=== PATIENT | female | born 1935 | race Caucasian/White ===

== ENCOUNTER 2016-07-18 11:02 | Observation (INO) | payer OTHER ==
--- NOTE | 2016-07-18 11:42 | PDOC ---
History of Present Illness - General Chief Complaint: Injury Stated Complaint: UNWITNESSED FALL Time Seen by Provider: 07/18/16 11:13 - History of Present Illness Initial Comments: 07/18/16 11:57 Chief complaint: The patient has no complaints, denies pain or injury History of present illness: Patient suffers from dementia, is a resident of a local assisted living facility, was found by the nursing staff on the floor, awake and responsive and without sign of injury, was assisted back to bed, and then transported by ambulance for further evaluation. According to the staff, she has a history of frequent falls. Review of systems: The patient denies headache or head injury, neck pain is secondary injury, chest pain, shortness of breath, abdominal pain, nausea, vomiting, diarrhea, visual or focal neurologic symptoms, unsteadiness of gait, dizziness, lightheadedness, vertigo. Patient's daughter was questioned upon arrival, and notes no recent symptoms or change in mental or physical status. Past medical history: Frequent falls as noted, Alzheimer's dementia, mood disorder, elevated cholesterol, adrenal insufficiency Medications: Namenda, Aricept, Celexa, Wellbutrin, atorvastatin, and vitamins ALLERGIES: None Social history: retirement facility, dementia unit, ambulatory on her own, no tobacco alcohol or nonprescription drugs. Family history: Reviewed with her daughter, noncontributory, including early coronary artery disease, metabolic diseases including diabetes, [employer] disease, and cancer. Physical exam: Alert, verbally responsive, accurate responses, no acute distress , no complaints Afebrile, vital signs normal except for rapid irregular heart rate of 150/m Head atraumatic. There is no evidence of a head injury, no abrasion, laceration , contusion, or hematoma palpable or visible. HEENT normal Neck supple without bruit mass or nodes. There is no point tenderness, no spasm , and full range of motion without pain Lungs clear to P&A CV irregularly irregular 150/m. 2/6 systolic ejection murmur left sternal border. No JVD or edema. Pulses full and symmetric. No bruits Abdomen soft nontender without mass or organomegaly Neurological C2 to 12 intact. No focal sensory or motor deficits. Strength full and symmetric. Gait stable and unimpaired Extremities no CCE. No trauma visible or palpable. Full range of motion shoulder and hips without limitation or pain. No point tenderness or deformity of the spine. Skin clear, no rash, adequate turgor but mucous membranes Impression: New onset rapid atrial fibrillation, possibly responsible for fall. Although no loss of consciousness was described, this is still a possibility. No sign of serious injury, including injury to the head neck or extremities. Plan: Rate control, consider conversion, anticoagulation if arrhythmia persists. Cardiology consult. Admit for telemetry. Past History - Past Medical History Allergies/Adverse Reactions: Allergies Allergy/AdvReac Type Severity Reaction Status Date / Time No Known Allergies Allergy Verified 07/18/16 11:14 Home Medications: Ambulatory Orders Atorvastatin Ca [Lipitor] 40 mg PO DAILY 07/18/16 Bupropion HCl [Wellbutrin Xl -] 150 mg PO DAILY 07/18/16 Cholecalciferol (Vitamin D3) [Vitamin D3] 2,000 unit PO DAILY 07/18/16 Citalopram Hydrobromide [Citalopram HBr] 40 mg PO DAILY 07/18/16 Donepezil HCl 23 mg PO DAILY 07/18/16 Fludrocortisone Acetate [Florinef -] 0.1 mg PO BID 07/18/16 Memantine HCl [Namenda Xr] 28 mg PO DAILY 07/18/16 Digoxin [Lanoxin -] 0.125 mg PO DAILY #30 tablet 07/19/16 Cardiac Disorders: Yes (HYPOTENSION) Dementia: Yes Hypercholesterolemia: Yes Psychiatric Problems: Yes (DEPRESSION) - Psycho/Social/Smoking Cessation Hx Anxiety: No Suicidal Ideation: No Smoking History: Unknown if ever smoked Have you smoked in the past 12 months: No Information on smoking cessation initiated: No Hx Alcohol Use: No Drug/Substance Use Hx: No Substance Use Type: None *Physical Exam - Vital Signs Last Vital Signs Temp Pulse Resp BP Pulse Ox 98.2 F 76 18 104/60 98 07/18/16 11:03 07/18/16 11:03 07/18/16 11:03 07/18/16 11:03 07/18/16 11:03 ED Treatment Course - LABORATORY CBC & Chemistry Diagram: 07/19/16 07:40 07/19/16 07:40 Medical Decision Making - Medical Decision Making 07/18/16 12:11 EKG was performed which shows atrial fibrillation with a rapid ventricular response, 158 bpm, nonspecific ST-T wave changes, probably rate related, though inferior subendocardial ischemia is possible. 07/18/16 12:59 Patient's blood pressure was elevated upon admission, but while lying comfortably in bed, was noted to drop to 89/60. Fluids were administered. Dr. Mancilla, cardiology consult, was contacted by phone. The case was discussed, including the new onset atrial fibrillation and the labile blood pressure with hypotension. She recommended administration of digoxin as well as standard monitoring and support of blood pressure if necessary. Pressure rapidly rebounded to 111/69. 07/18/16 13:14 Patient immediately converted to normal sinus rhythm after the administration of digoxin 0.5 mg IV push. She continues to be asymptomatic. Heart rate now is regular and below 100, and repeat EKG being performed. Repeat EKG shows normal sinus rhythm 81/m. Normal axes and intervals. Nonspecific ST-T wave abnormality persists. No ST elevations. No old EKG for comparison. 07/18/16 14:24 Laboratory work reviewed. No significant abnormalities. Normal troponin. 07/18/16 14:25 *DC/Admit/Observation/Transfer Diagnosis at time of Disposition: Atrial fibrillation Qualifiers: Atrial fibrillation type: paroxysmal Qualified Code(s): I48.0 - Paroxysmal atrial fibrillation - Discharge Dispostion Disposition: HOME Condition at time of disposition: Improved Admit: Yes - Prescriptions
[2016-07-18] MEDS ORDERED: dilTIAZem HCL 50 MG/10 ML - 10 ML VIAL IVPUSH ONE (12:25)
[2016-07-18 12:44] LABS: BASOPHIL 2.2 % (0-2.0); EOSINOPHIL 2.2 % (0-4.5); MCH 29.6 pg (25.7-33.7); MCHC 33.6 g/dl (32.0-36.0); MEAN CELL VOLUME 87.9 fl (80-96); MEAN PLT VOLUME 7.7 fl (7.5-11.1); NEUTROPHILS 69.7 % (42.8-82.8); PLATELET COUNT 226 K/MM3 (134-434); RDW 14.3 % (11.6-15.6); WHITE BLOOD COUNT 6.3 K/mm3 (4.0-10.8)
[2016-07-18] MEDS ORDERED: SODIUM CHLORIDE 250 ML IV STA (12:50)
[2016-07-18] MEDS ORDERED: DIGOXIN 0.5 MG/2 ML AMPUL IVPUSH ONE (12:50)
[2016-07-18] MEDS ORDERED: DIGOXIN 0.5 MG/2 ML AMPUL ONE (12:55)
[2016-07-18 12:57] LABS: INR 0.97 (0.82-1.09); PROTHROMBIN TIME (PATIENT) 10.9 SEC (10.2-13.0)
[2016-07-18 13:00] LABS: CPK(DFH) 67 IU/L (26-140)
[2016-07-18 13:01] LABS: ALBUMIN 3.5 g/dl (3.5-5.0); ALK PHOS 132 U/L (32-92); ANION GAP 8 (8-16); BILIRUBIN,TOTAL 0.3 mg/dl (0.2-1.0); CALCIUM 9.1 mg/dl (8.4-10.2); CO2 26 mmol/L (22-28); GLUCOSE,RANDOM 113 mg/dl (74-106); SGOT/AST 17 U/L (10-42); SGPT/ALT 12 U/L (10-40); TOT PROT 5.9 g/dl (6.4-8.3)
[2016-07-18 14:16] LABS: TROPONIN I (DFP) < 0.03 ng/ml (0.03-0.50)
[2016-07-18 16:35] LABS: URINE APPEARANCE Clear; URINE BILIRUBIN Negative (NEGATIVE); URINE BLOOD Negative (NEGATIVE); URINE GLUCOSE (UA) Negative (NEGATIVE); URINE KETONE Negative (NEGATIVE); URINE LEUK ESTERASE Trace (NEGATIVE); URINE NITRITE Negative (NEGATIVE); URINE PROTEIN Negative (NEGATIVE); URINE UROBILINOGEN 0.2 E.U/dl (0.2-1.0)
[2016-07-18 16:38] LABS: URINE COLOR YELLOW
[2016-07-18 17:37] VITALS: BMI 24.9
--- NOTE | 2016-07-18 17:50 | CONSULT ---
Consult Consult Specialty:: Cardiology Referred by:: Dr Harris Reason for Consultation:: Rapid afib - History of Present Illness Chief Complaint: Fall History of Present Illness: 80 yo female, resident of [facility], with dementia, hyperlipidemia, orthostatic hypotention, past falls, here after a fall w/o reported LOC -> found in rapid afin with initial BP 160s (spontaneously dropped to 80 subsequently) and HR 150s -. treated with digoxin 0.5 mg IV - SR pretty soon thereafter. Patient denies palpitations or CP, or SOB. However, she is not reliable given her dementia - History Source History Provided By: Patient, Medical Record - Past Medical History SUBSTANCE ABUSE CLINICIAN: Yes: Dementia Cardio/Vascular: Yes: Hyperlipdemia, Other (orthostatic hypotension) - Alcohol/Substance Use Hx Alcohol Use: No - Smoking History Smoking history: Unknown if ever smoked Have you smoked in the past 12 months: No - Social History Usual Living Arrangement: Assisted Living Home Medications - Allergies Allergies/Adverse Reactions: Allergies Allergy/AdvReac Type Severity Reaction Status Date / Time No Known Allergies Allergy Verified 07/18/16 11:14 - Home Medications Home Medications: Ambulatory Orders Atorvastatin Ca [Lipitor] 40 mg PO DAILY 07/18/16 Bupropion HCl [Wellbutrin Xl -] 150 mg PO DAILY 07/18/16 Cholecalciferol (Vitamin D3) [Vitamin D3] 2,000 unit PO DAILY 07/18/16 Citalopram Hydrobromide [Citalopram HBr] 40 mg PO DAILY 07/18/16 Donepezil HCl 23 mg PO DAILY 07/18/16 Fludrocortisone Acetate [Florinef -] 0.1 mg PO BID 07/18/16 Memantine HCl [Namenda Xr] 28 mg PO DAILY 07/18/16 Digoxin [Lanoxin -] 0.125 mg PO DAILY #30 tablet 07/19/16 Family Disease History - Family Disease History Family History: Unable to Obtain (due to mental status) Review of Systems Unable to obtain ROS, reason: due to mental status Physical Exam Vital Signs: Vital Signs Temperature 98.2 F 07/18/16 14:59 Pulse Rate 72 07/18/16 16:19 Respiratory Rate 16 07/18/16 16:19 Blood Pressure 125/78 07/18/16 16:19 O2 Sat by Pulse Oximetry (%) 97 07/18/16 16:19 Constitutional: Yes: No Distress Eyes: Yes: Conjunctiva Clear HENT: Yes: Atraumatic Neck: Yes: Supple Cardiovascular: Yes: Regular Rate and Rhythm. No: Murmur Respiratory: Yes: CTA Bilaterally Gastrointestinal: Yes: Normal Bowel Sounds, Soft Edema: No Peripheral Pulses WNL: Yes Neurological: Yes: Alert, Other (forgetful) Imaging - Results Chest X-ray: Report Reviewed, Image Reviewed EKG: Report Reviewed, Image Reviewed (first EKG : afib at 158 , NSST changes. second EKG: SB , mild NSST changes) Assessment/Plan 80 yo female with the above history, here after a fall -. found in rapid afib - . converted to SR after 0.5 IV digoxin No evidence of ACS or CHF Patient has age as major risk factor for afib -. she has a modified CHADS of 3, placing her at high risk for thromboembolic complications. However, I would not anticoagulate her given the orthostasis and previous falls Would not add BB either because of the orthostasis -> if recurrence, will consider standing dig Rec: Tele monitor with serial José Keep lytes nl -> give 40 kdur and check Mg (keep > 2) If stable, may be d/carol in AM, with outpt follow-up Thanks!
[2016-07-18] MEDS ORDERED: POTASSIUM CHLORIDE TABS 20 MEQ TABLET.ER (FP) PO ONE (17:51)
[2016-07-18 17:53] LABS: PH,URINE 6.5 (4.5-8); URINE APPEARANCE Clear; URINE BILIRUBIN Negative (NEGATIVE); URINE BLOOD Trace-intact (NEGATIVE); URINE GLUCOSE (UA) Negative (NEGATIVE); URINE KETONE Negative (NEGATIVE); URINE LEUK ESTERASE Negative (NEGATIVE); URINE NITRITE Negative (NEGATIVE); URINE PROTEIN Negative (NEGATIVE); URINE UROBILINOGEN 0.2 E.U/dl (0.2-1.0)
[2016-07-18 17:57] LABS: URINE COLOR YELLOW
[2016-07-18 18:10] LABS: MAGNESIUM 2.1 mg/dL (1.8-2.4)
[2016-07-18 19:19] LABS: TROPONIN I (DFP) 0.08 ng/ml (0.03-0.50)
[2016-07-18] MEDS ORDERED: ATORVASTATIN CA 40 MG TABLET (FP) PO SCH (22:00)
--- NOTE | 2016-07-18 22:02 | HP ---
CHIEF COMPLAINT: fall PCP: Dr. Monreal in [place] HISTORY OF PRESENT ILLNESS: This is a 80 year old female with a past medical history significant for frequent falls, dementia and orthostatic hypotension due to adrenal insufficiency who was found on the floor at her assisted living facility, [facility]. Upon exam, pt is feeling well, denies any c/o chest pain, SOB, palpitations or dizziness. Pt does not really remember falling but does remember coming here via ambulance. ER course was notable for: (1) ECG with afib with RVR (2) trop negative Recent Travel: none PAST MEDICAL HISTORY: dementia, Alzheimers orthostatic hypotension due to adrenal insufficiency hyperlipidemia frequent falls PAST SURGICAL HISTORY: tonsillectomy as a child Social History Smoking: pt denies Drinking: Pt denies Drugs: pt denies Allergies No Known Allergies Allergy (Verified 07/18/16 11:14) HOME MEDICATIONS: 3 Medication Instructions Recorded Atorvastatin Ca [Lipitor] 40 mg PO DAILY 07/18/16 Bupropion HCl [Wellbutrin Xl -] 150 mg PO DAILY 07/18/16 Cholecalciferol (Vitamin D3) 2,000 unit PO DAILY 07/18/16 [Vitamin D3] Citalopram Hydrobromide 40 mg PO DAILY 07/18/16 [Citalopram HBr] Donepezil HCl 23 mg PO DAILY 07/18/16 Fludrocortisone Acetate [Florinef 0.1 mg PO BID 07/18/16 -] Memantine HCl [Namenda Xr] 28 mg PO DAILY 07/18/16 REVIEW OF SYSTEMS CONSTITUTIONAL: Absent: fever, chills, diaphoresis, generalized weakness, malaise, loss of appetite, weight change HEENT: Absent: rhinorrhea, nasal congestion, throat pain, throat swelling, difficulty swallowing, mouth swelling, ear pain, eye pain, visual changes CARDIOVASCULAR: Absent: chest pain, syncope, palpitations, irregular heart rate, lightheadedness , peripheral edema RESPIRATORY: Absent: cough, shortness of breath, dyspnea with exertion, orthopnea, wheezing, stridor, hemoptysis GASTROINTESTINAL: Absent: abdominal pain, abdominal distension, nausea, vomiting, diarrhea, constipation, melena, hematochezia GENITOURINARY: Absent: dysuria, frequency, urgency, hesitancy, hematuria, flank pain, genital pain MUSCULOSKELETAL: Present: Fall Absent: myalgia, arthralgia, joint swelling, back pain, neck pain SKIN: Absent: rash, itching, pallor HEMATOLOGIC/IMMUNOLOGIC: Absent: easy bleeding, easy bruising, lymphadenopathy, frequent infections ENDOCRINE: Absent: unexplained weight gain, unexplained weight loss, heat intolerance, cold intolerance NEUROLOGIC: Absent: headache, focal weakness or paresthesias, dizziness, unsteady gait, seizure, mental status changes, bladder or bowel incontinence PSYCHIATRIC: Absent: anxiety, depression, suicidal or homicidal ideation, hallucinations. PHYSICAL EXAMINATION Vital Signs - 24 hr 3 07/18/16 07/18/16 07/18/16 18:04 19:58 21:15 Temperature 98.1 F Pulse Rate 79 Respiratory 18 18 18 Rate Blood Pressure 156/60 O2 Sat by Pulse 100 100 100 Oximetry (%) GENERAL: Awake, alert, and oriented to person, hospital (but not name of hospital), month and season but not year, in no acute distress. HEAD: Normal with no signs of trauma. EYES: Pupils equal, round and reactive to light, extraocular movements intact, sclera anicteric, conjunctiva clear. No lid lag. EARS, NOSE, THROAT: Ears normal, nares patent, oropharynx clear without exudates. Moist mucous membranes. NECK: Normal range of motion, supple without lymphadenopathy, JVD, or masses. LUNGS: Breath sounds equal, clear to auscultation bilaterally. No wheezes, and no crackles. No accessory muscle use. HEART: Regular rate and rhythm, normal S1 and S2 without murmur, rub or gallop. ABDOMEN: Soft, nontender, not distended, normoactive bowel sounds, no guarding, no rebound, no masses. No hepatomegaly or splenomegaly. MUSCULOSKELETAL: Normal range of motion at all joints. No bony deformities or tenderness. No CVA tenderness. UPPER EXTREMITIES: 2+ pulses, warm, well-perfused. No cyanosis. No clubbing. No peripheral edema. LOWER EXTREMITIES: 2+ pulses, warm, well-perfused. No calf tenderness. No peripheral edema. NEUROLOGICAL: Cranial nerves II-XII intact. Normal speech. Normal gait. PSYCHIATRIC: Cooperative. Good eye contact. Appropriate mood and affect. SKIN: Warm, dry, normal turgor, no rashes or lesions noted, normal capillary refill. Laboratory Results - last 24 hr 3 07/18/16 07/18/16 07/18/16 12:24 12:24 12:36 WBC RBC Hgb Hct MCV MCHC RDW Plt Count MPV Neutrophils % Lymphocytes % Monocytes % Eosinophils % Basophils % INR 0.97 Sodium 142 Potassium 3.8 Chloride 108 H Carbon Dioxide 26 Anion Gap 8 BUN 19 H Creatinine 1.0 Creat Clearance w eGFR 53.62 Random Glucose 113 H Calcium 9.1 Magnesium 2.1 Total Bilirubin 0.3 AST 17 ALT 12 Alkaline Phosphatase 132 H Creatine Kinase Troponin I Total Protein 5.9 L Albumin 3.5 TSH Urine Color Yellow Urine Appearance Clear Urine pH 7.0 Ur Specific [place] 1.020 Urine Protein Negative Urine Glucose (UA) Negative Urine Ketones Negative Urine Blood Negative Urine Nitrite Negative Urine Bilirubin Negative Urine Urobilinogen 0.2 e.u/dl Ur Leukocyte Esterase Trace 3 07/18/16 07/18/16 07/18/16 12:36 12:36 12:38 WBC 6.3 RBC 4.13 Hgb 12.2 Hct 36.3 MCV 87.9 MCHC 33.6 RDW 14.3 Plt Count 226 MPV 7.7 Neutrophils % 69.7 Lymphocytes % 19.4 Monocytes % 6.5 Eosinophils % 2.2 Basophils % 2.2 H INR Sodium Potassium Chloride Carbon Dioxide Anion Gap BUN Creatinine Creat Clearance w eGFR Random Glucose Calcium Magnesium Total Bilirubin AST ALT Alkaline Phosphatase Creatine Kinase 67 Troponin I < 0.03 L Total Protein Albumin TSH 1.64 Urine Color Urine Appearance Urine pH Ur Specific [place] Urine Protein Urine Glucose (UA) Urine Ketones Urine Blood Urine Nitrite Urine Bilirubin Urine Urobilinogen Ur Leukocyte Esterase 3 07/18/16 07/18/16 16:55 18:30 Creatine Kinase 79 Troponin I 0.08 Urine Color Yellow Urine Appearance Clear Urine pH 6.5 Ur Specific [place] 1.020 Urine Protein Negative Urine Glucose (UA) Negative Urine Ketones Negative Urine Blood Trace-intact Urine Nitrite Negative Urine Bilirubin Negative Urine Urobilinogen 0.2 e.u/dl Ur Leukocyte Esterase Negative ECG 07/18/16 12:01: Afib with RVR, rate 158, QT/QTC 286/463, marked ST abnormality, possible inferior subendocardial injury. ECG 07/18/16 13:21: NSR, rate 81, QTC 473, no acute ST changes, inverted T wave lead 3 ASSESSMENT/PLAN: 80yF with PMH Alzheimer's dementia, frequent falls, orthostatic hypotension due to adrenal insufficiency, hyperlipidemia presented s/p fall, FOF at [facility]. Pt was found to be in Afib with RVR in ED. Admitted for same. Afib with RVR - given digoxin 0.5mg IVP in ED with conversion back to NSR - monitor on tele - if afib recurs, will give digoxin - troponin with slight bump, likely due to demand ischemia, cont to trend. - cardiology consult appreciated - avoid BBlocker or CCB due to h/o hypotension - defer AC due to frequent falls, risk of bleeding. adrenal insufficiency - cont home florinef hyperlipidemia - cont home statin dementia - cont namenda and aricept DVT PPX - defer as expected LOS <48h Dispo: pt admitted for further observation. If no further afib, dc tomorrow. Addendum: 3rd troponin 0.12. climbing but not above 0.5. will start ASA 324mg chew now, repeat in am, if above 0.5, start lovenox full dose Visit type - Emergency Visit Emergency Visit: Yes ED Registration Date: 07/18/16 Care time: The patient presented to the Emergency Department on the above date and was hospitalized for further evaluation of their emergent condition. - New Patient This patient is new to me today: Yes Date on this admission: 07/19/16 - Critical Care Critical Care patient: No
[2016-07-18] MEDS: FLUDROCORTISONE ACETATE 0.1 MG TABLET (FP) PO SCH (22:26)
[2016-07-19 02:10] LABS: TROPONIN I 0.12 ng/ml (0.00-0.05)
[2016-07-19] MEDS ORDERED: ASPIRIN 81 MG CHEWABLE TABLETS PO ONE (02:42)
[2016-07-19 05:49] VITALS: TEMP 98
[2016-07-19 06:33] VITALS: BP 156/62
[2016-07-19 08:03] LABS: MCH 29.9 pg (25.7-33.7); MCHC 33.7 g/dl (32.0-36.0); MEAN CELL VOLUME 88.6 fl (80-96); MEAN PLT VOLUME 7.8 fl (7.5-11.1); NEUTROPHILS 64.7 % (42.8-82.8); PLATELET COUNT 203 K/MM3 (134-434); RDW 13.9 % (11.6-15.6); WHITE BLOOD COUNT 5.5 K/mm3 (4.0-10.8)
[2016-07-19 08:27] LABS: CALCIUM 8.8 mg/dl (8.4-10.2); COCKROFT - GAULT 60.418; CREATININE 0.9 mg/dl (0.6-1.3); MAGNESIUM 1.9 mg/dL (1.8-2.4)
[2016-07-19] MEDS ORDERED: CHOLECALCIFEROL (VITAMIN D3) 1,000 UNIT TABLET (FP) PO SCH (10:00)
[2016-07-19] MEDS ORDERED: PATIENT'S OWN MEDICATION (NON-FORMULARY) (Donepezil Hcl [Donepezil Hcl] 23 MG) PO SCH (10:00)
[2016-07-19] MEDS ORDERED: CITALOPRAM HYDROBROMIDE 20 MG TABLET (FP) PO SCH (10:00)
[2016-07-19] MEDS ORDERED: PATIENT'S OWN MEDICATION (NON-FORMULARY) (Memantine Hcl [Namenda Xr] 28 MG) PO SCH (10:00)
--- NOTE | 2016-07-19 10:00 | PN ---
Physical Exam: SUBJECTIVE: Patient seen and examined OBJECTIVE: Vital Signs Period Temp Pulse Resp BP Sys/Amador Pulse Ox Last 24 Hr 98 F-98.7 F 66-79 18-18 130-156/60-76 94-100 GENERAL: The patient is awake, alert, and fully oriented, in no acute distress. HEAD: Normal with no signs of trauma. EYES: PERRL, extraocular movements intact, sclera anicteric, conjunctiva clear. No ptosis. ENT: Ears normal, nares patent, oropharynx clear without exudates, moist mucous membranes. NECK: Trachea midline, full range of motion, supple. LUNGS: Breath sounds equal, clear to auscultation bilaterally, no wheezes, no crackles, no accessory muscle use. HEART: Regular rate and rhythm, S1, S2 without murmur, rub or gallop. ABDOMEN: Soft, nontender, nondistended, normoactive bowel sounds, no guarding, no rebound, no hepatosplenomegaly, no masses. EXTREMITIES: 2+ pulses, warm, well-perfused, no edema. NEUROLOGICAL: Cranial nerves II through XII grossly intact. Normal speech, gait not observed. PSYCH: Normal mood, normal affect. SKIN: Warm, dry, normal turgor, no rashes or lesions noted Laboratory Results - last 24 hr 07/18/16 07/18/16 07/19/16 16:55 18:30 00:30 WBC RBC Hgb Hct MCV MCHC RDW Plt Count MPV Neutrophils % Lymphocytes % Monocytes % Eosinophils % Basophils % Sodium Potassium Chloride Carbon Dioxide Anion Gap BUN Creatinine Random Glucose Calcium Magnesium Creatine Kinase 79 88 Troponin I 0.08 0.12 H Urine Color Yellow Urine Appearance Clear Urine pH 6.5 Ur Specific [place] 1.020 Urine Protein Negative Urine Glucose (UA) Negative Urine Ketones Negative Urine Blood Trace-intact Urine Nitrite Negative Urine Bilirubin Negative Urine Urobilinogen 0.2 e.u/dl Ur Leukocyte Esterase Negative 07/19/16 07/19/16 07/19/16 07:40 07:40 07:40 WBC 5.5 RBC 3.96 Hgb 11.8 Hct 35.1 MCV 88.6 MCHC 33.7 RDW 13.9 Plt Count 203 MPV 7.8 Neutrophils % 64.7 Lymphocytes % 24.3 D Monocytes % 7.0 Eosinophils % 3.0 Basophils % 1.0 Sodium 137 Potassium 3.9 Chloride 104 Carbon Dioxide 28 Anion Gap 5 L BUN 15 D Creatinine 0.9 Random Glucose 99 Calcium 8.8 Magnesium 1.9 Creatine Kinase 82 Troponin I Urine Color Urine Appearance Urine pH Ur Specific [place] Urine Protein Urine Glucose (UA) Urine Ketones Urine Blood Urine Nitrite Urine Bilirubin Urine Urobilinogen Ur Leukocyte Esterase Active Medications Generic Name Dose Route Start Last Admin Trade Name Javier PRN Reason Stop Dose Admin Atorvastatin Calcium 40 mg 07/18/16 22:00 07/18/16 21:09 Lipitor - PO 40 mg HS ALTAGRACIA Administration Bupropion HCl 150 mg 07/19/16 10:00 Wellbutrin Xl - PO DAILY [facility] Cholecalciferol 2,000 unit 07/19/16 10:00 Vitamin D3 - PO DAILY [facility] Citalopram Hydrobromide 40 mg 07/19/16 10:00 Celexa - PO DAILY [facility] Fludrocortisone Acetate 0.1 mg 07/18/16 22:00 07/18/16 22:26 Florinef - PO 0.1 mg BID ALTAGRACIA Administration Non-Formulary Medication 23 mg 07/19/16 10:00 Donepezil Hcl [Donepezil Hcl] PO DAILY [facility] Non-Formulary Medication 28 mg 07/19/16 10:00 Memantine Hcl [Namenda Xr] PO DAILY [facility] ASSESSMENT/PLAN:
[2016-07-19 10:03] LABS: TROPONIN I (DFP) 0.06 ng/ml (0.03-0.50)
[2016-07-19] MEDS: FLUDROCORTISONE ACETATE 0.1 MG TABLET (FP) PO SCH (10:06)
--- NOTE | 2016-07-19 11:27 | DS ---
Physical Exam: SUBJECTIVE: Patient seen and examined. Denies any CP, SOB, N/V. Does not remember falling or if she hit her head. Denies any head or neck pain/ stiffness. OBJECTIVE: Two episodes of AFib with RVR, rate 133-149, about 30 seconds each. Asymptomatic. Vital Signs Period Temp Pulse Resp BP Sys/Amador Pulse Ox Last 24 Hr 98 F-98.7 F 66-79 18-18 130-156/60-76 94-100 PHYSICAL EXAM GENERAL: The patient is awake, alert and oriented to person and place (thinks it is 2016). In no acute distress. HEAD: Normal with no signs of trauma. EYES: PERRL, extraocular movements intact, sclera anicteric, conjunctiva clear. NECK: Trachea midline, full range of motion. LUNGS: Breath sounds equal, clear to auscultation bilaterally, no wheezes, no crackles, no accessory muscle use. HEART: Regular rate and rhythm, S1, S2 without murmur, rub or gallop. ABDOMEN: Soft, nontender, nondistended, normoactive bowel sounds, no guarding, no rebound, no hepatosplenomegaly, no masses. EXTREMITIES: 2+ pulses, warm, well-perfused, no edema, no calf tenderness. NEUROLOGICAL: Cranial nerves II through XII grossly intact. Normal speech, gait not observed. LABS Laboratory Results - last 24 hr 07/18/16 07/18/16 07/19/16 16:55 18:30 00:30 WBC RBC Hgb Hct MCV MCHC RDW Plt Count MPV Neutrophils % Lymphocytes % Monocytes % Eosinophils % Basophils % Sodium Potassium Chloride Carbon Dioxide Anion Gap BUN Creatinine Random Glucose Calcium Magnesium Creatine Kinase 79 88 Troponin I 0.08 0.12 H Urine Color Yellow Urine Appearance Clear Urine pH 6.5 Ur Specific Morgan 1.020 Urine Protein Negative Urine Glucose (UA) Negative Urine Ketones Negative Urine Blood Trace-intact Urine Nitrite Negative Urine Bilirubin Negative Urine Urobilinogen 0.2 e.u/dl Ur Leukocyte Esterase Negative 07/19/16 07/19/16 07/19/16 07:40 07:40 07:40 WBC 5.5 RBC 3.96 Hgb 11.8 Hct 35.1 MCV 88.6 MCHC 33.7 RDW 13.9 Plt Count 203 MPV 7.8 Neutrophils % 64.7 Lymphocytes % 24.3 D Monocytes % 7.0 Eosinophils % 3.0 Basophils % 1.0 Sodium 137 Potassium 3.9 Chloride 104 Carbon Dioxide 28 Anion Gap 5 L BUN 15 D Creatinine 0.9 Random Glucose 99 Calcium 8.8 Magnesium 1.9 Creatine Kinase 82 Troponin I 0.06 Urine Color Urine Appearance Urine pH Ur Specific Morgan Urine Protein Urine Glucose (UA) Urine Ketones Urine Blood Urine Nitrite Urine Bilirubin Urine Urobilinogen Ur Leukocyte Esterase IMAGING: CT head 07/19 - No evidence of acute intracranial pathology. HOSPITAL COURSE: 80 year-old female with PMH dementia, Alzheimer's, orthostatic hypotension secondary to adrenal insufficiency, hyperlipidemia, and frequent falls who presented to the ED after being found on the floor by staff at her nursing facility. She was conscious at the time. She does not remember falling or if she hit her head. On ED presentation, pt was found to be in AFib with RVR , rate in the 150s. She was given one dose of IV Digoxin and converted to NSR. Today she has had two short paroxysmal episodes of AFib with a rate in the 130- 150s. Date of Admission:07/18/16 Date of Discharge: 07/19/16 PLAN: 1. AFib with RVR - Paroxysmal AFib today, HR 130-150 - Will not start BB or CCB due to history of orthostatic hypotension - Spoke with Dr. Mancilla about paroxysmal AFib. Digoxin 0.125mg PO x 1 given and will start as outpatient per recommendations. - [id number] score 3, however not a candidate for AC given falls. - Troponin max 0.12, likely rate-related. Has trended down to 0.06. 2. Alzheimer's - Mental status at baseline - Continue Namenda, Donepezil 3. Adrenal Insufficiency - Continue Florinef 4. Hyperlipidemia - Continue Lipitor 5. F/E/N Fluids: encourage PO intake Electrolytes: within normal limits Nutrition: tolerating regular diet Dispo: Discharge to assisted living facility. Plan discussed with daughter. Minutes to complete discharge: 35 Discharge Summary Reason For Visit: AFIB Current Active Problems Atrial fibrillation (Acute) Condition: Improved - Instructions Diet, Activity, Other Instructions: You were seen on this admission with atrial fibrillation, an abnormal heart rhythm. The abnormal rhythm has resolved after one dose of medication. Continue all of your prescribed medicines. Follow up with Dr. Mancilla (the heat treating bluer) within 1-2 weeks. Return here for chest pain, shortness of breath, palpitations, or any other concerning symptoms. Referrals: Treasure Mancilla MD [Staff Physician] - 2 Weeks (Cardiology) Disposition: HOME - Home Medications Comprehensive Discharge Medication List: Ambulatory Orders Atorvastatin Ca [Lipitor] 40 mg PO DAILY 07/18/16 Bupropion HCl [Wellbutrin Xl -] 150 mg PO DAILY 07/18/16 Cholecalciferol (Vitamin D3) [Vitamin D3] 2,000 unit PO DAILY 07/18/16 Citalopram Hydrobromide [Citalopram HBr] 40 mg PO DAILY 07/18/16 Donepezil HCl 23 mg PO DAILY 07/18/16 Fludrocortisone Acetate [Florinef -] 0.1 mg PO BID 07/18/16 Memantine HCl [Namenda Xr] 28 mg PO DAILY 07/18/16 This patient is new to me today: Yes Date on this admission: 07/19/16 Emergency Visit: Yes ED Registration Date: 07/18/16 Care time: The patient presented to the Emergency Department on the above date and was hospitalized for further evaluation of their emergent condition. Critical Care patient: No - Discharge Referral Referred to [facility] Med P.C.: No
[2016-07-19] MEDS ORDERED: DIGOXIN 0.125 MG TABLET (FP) PO ONE (12:36)
[2016-07-19 12:51] VITALS: PULSE 74
--- NOTE | 2016-07-19 16:15 | EKG ---
Test Reason : Blood Pressure : / mmHG Vent. Rate : 081 BPM Atrial Rate : 081 BPM P-R Int : 160 ms QRS Dur : 090 ms QT Int : 408 ms P-R-T Axes : 071 023 021 degrees QTc Int : 473 ms POOR DATA QUALITY, INTERPRETATION MAY BE ADVERSELY AFFECTED NORMAL SINUS RHYTHM NONSPECIFIC ST ABNORMALITY WHEN COMPARED WITH ECG OF 18-JUL-2016 12:01, SINUS RHYTHM HAS REPLACED ATRIAL FIBRILLATION VENT. RATE HAS DECREASED BY [address] NO LONGER DEPRESSED IN ANTEROLATERAL LEADS T WAVE INVERSION NO LONGER EVIDENT IN INFERIOR LEADS T WAVE INVERSION NO LONGER EVIDENT IN LATERAL LEADS Confirmed by MD KAY, WILLIS ([id number]) on 07/19/2016 4:15:40 PM Referred By: STAR Confirmed By:WILLIS VILLANUEVA MD
--- NOTE | 2016-07-19 16:15 | EKG ---
Test Reason : Blood Pressure : / mmHG Vent. Rate : 158 BPM Atrial Rate : 156 BPM P-R Int : 000 ms QRS Dur : 084 ms QT Int : 286 ms P-R-T Axes : 000 043 -30 degrees QTc Int : 463 ms ATRIAL FIBRILLATION WITH RAPID VENTRICULAR RESPONSE MARKED ST ABNORMALITY, POSSIBLE INFERIOR SUBENDOCARDIAL INJURY NO PREVIOUS ECGS AVAILABLE Confirmed by MD VILLANUEVA MARJORY ([id number]) on 07/19/2016 4:15:52 PM Referred By: Gage GRAVES Confirmed By:WILLIS VILLANUEVA MD
--- NOTE | 2016-07-22 11:44 | EKG ---
Test Reason : Blood Pressure : / mmHG Vent. Rate : 064 BPM Atrial Rate : 064 BPM P-R Int : 172 ms QRS Dur : 090 ms QT Int : 472 ms P-R-T Axes : 072 030 017 degrees QTc Int : 486 ms NORMAL SINUS RHYTHM NONSPECIFIC ST ABNORMALITY ABNORMAL ECG WHEN COMPARED WITH ECG OF 18-JUL-2016 13:21, T WAVE VARIATION Confirmed by ESTEFANY FERNANDEZ MD ([id number]) on 07/22/2016 11:43:54 AM Referred By: DR RIBEIRO Confirmed By:ESTEFANY FERNANDEZ MD
== END 2016-07-19 13:30 | disposition home or self-care (01) ==
LOC: FER 11:02 → FM/S 16:19
PROVIDERS: ADMIT Internal Medicine; ATTEND Registered Nurse Emergency
PROC: 3E033GC Introduction of Other Therapeutic Substance into Peripheral Vein, Percutaneous Approach (ICD-10-PCS; principal; 2016-07-18)
DX: I48.0 Paroxysmal atrial fibrillation (principal); G30.9 Alzheimer's disease, unspecified; F02.80 Dementia in other diseases classified elsewhere, unspecified severity, without behavioral disturbance, psychotic disturbance, mood disturbance, and anxiety; R29.6 Repeated falls; E78.5 Hyperlipidemia, unspecified; E27.40 Unspecified adrenocortical insufficiency
CPT/HCPCS: 36415; 70450-TC; 80048; 80053; 81003; 82550; 83735; 84443; 84484; 85025; 85610; 87086; 93005; 93010; 99285-25; G0378

== ENCOUNTER 2016-08-19 14:08 | Emergency (ER) | payer OTHER ==
[2016-08-19 14:18] VITALS: TEMP 98.9; BMI 25.0
[2016-08-19 14:57] VITALS: BP 143/73; PULSE 72
--- NOTE | 2016-08-19 14:59 | PDOC ---
History of Present Illness - History of Present Illness Initial Comments: 08/19/16 15:38 Patient is a 80 year old female with significant medical hx of orthostatic hypotension, dementia, frequent falls, and HLD who is presenting to the ED for becoming unstable after walking into a wall this afternoon. The patient is an unreliable historian, stating that everything is fine, and history was provided by PCP, Dr. Vides. Patients PCP reports that she has been lightheaded more often than usual with more frequent falls. PCP suggests her symptoms might be secondary to orthostatic hypotension, since the patient was recently taken off medications for her hypotension. Patient denies any chest pain or shortness of breath. <Patria Mcgregor - Last Filed: 08/19/16 15:38> - General History Source: Patient, EMS, [facility] Records Exam Limitations: Dementia <Jay Waters - Last Filed: 08/19/16 16:11> - General Chief Complaint: Injury Stated Complaint: SENT FOR EVALUATION AFTER WALKING INTO WALL AT RE Time Seen by Provider: 08/19/16 14:10 Past History <Patria Mcgregor - Last Filed: 08/19/16 15:38> - Past Medical History Cardiac Disorders: Yes (HYPOTENSION) Dementia: Yes Hypercholesterolemia: Yes Psychiatric Problems: Yes (DEPRESSION) Other medical history: DEMENTIA - Psycho/Social/Smoking Cessation Hx Anxiety: Yes (DEPRESSION) Suicidal Ideation: No (UNABLE TO ASSESS PT HAS DEMENTIA) Smoking History: Unknown if ever smoked Have you smoked in the past 12 months: No Information on smoking cessation initiated: No Hx Alcohol Use: No Drug/Substance Use Hx: No Substance Use Type: None Hx Substance Use Treatment: No <Jay Waters - Last Filed: 08/19/16 16:11> - Past Medical History Allergies/Adverse Reactions: Allergies Allergy/AdvReac Type Severity Reaction Status Date / Time No Known Allergies Allergy Verified 07/18/16 11:14 Home Medications: Ambulatory Orders Atorvastatin Ca [Lipitor] 40 mg PO DAILY 07/18/16 Bupropion HCl [Wellbutrin Xl -] 150 mg PO DAILY 07/18/16 Cholecalciferol (Vitamin D3) [Vitamin D3] 2,000 unit PO DAILY 07/18/16 Citalopram Hydrobromide [Citalopram HBr] 40 mg PO DAILY 07/18/16 Donepezil HCl 23 mg PO DAILY 07/18/16 Fludrocortisone Acetate [Florinef -] 0.1 mg PO BID 07/18/16 Memantine HCl [Namenda Xr] 28 mg PO DAILY 07/18/16 Digoxin [Lanoxin -] 0.125 mg PO DAILY #30 tablet 07/19/16 Review of Systems - Review of Systems Comments:: 08/19/16 15:39 GENERAL/CONSTITUTIONAL: No fever or chills. No weakness. HEAD, EYES, EARS, NOSE AND THROAT: No change in vision. No ear pain or discharge. No sore throat. CARDIOVASCULAR: Lightheadedness. No chest pain or shortness of breath. RESPIRATORY: No cough, wheezing, or hemoptysis. GASTROINTESTINAL: No nausea, vomiting, diarrhea or constipation. GENITOURINARY: No dysuria, frequency, or change in urination. MUSCULOSKELETAL: No joint or muscle swelling or pain. No neck or back pain. ENDOCRINE: No increased thirst. No abnormal weight change. SKIN: No rash NEUROLOGIC: Gait instability, frequent falls. No headache, vertigo, loss of consciousness, or change in sensation. <Patria Mcgregor - Last Filed: 08/19/16 15:38> *Physical Exam - Vital Signs Last Vital Signs Temp Pulse Resp BP Pulse Ox 98.9 F 72 16 143/73 98 08/19/16 14:09 08/19/16 14:56 08/19/16 14:09 08/19/16 14:56 08/19/16 14:09 - Physical Exam Comments: 08/19/16 15:40 GENERAL: Awake, alert, and fully oriented, in no acute distress HEAD: No signs of trauma EYES: PERRLA, EOMI, sclera anicteric, conjunctiva clear ENT: Auricles normal inspection, hearing grossly normal, nares patent, oropharynx clear without exudates. Moist mucosa NECK: Normal ROM, supple, no lymphadenopathy, JVD, or masses LUNGS: Breath sounds equal, clear to auscultation bilaterally. No wheezes, and no crackles HEART: Regular rate and rhythm, normal S1 and S2, no murmurs, rubs or gallops ABDOMEN: Soft, nontender, normoactive bowel sounds. No guarding, no rebound. No masses EXTREMITIES: Normal range of motion, no edema. No clubbing or cyanosis. No cords, erythema, or tenderness NEUROLOGICAL: AAO x 2 (thinks its 2016). Cranial nerves II through XII grossly intact. Normal speech SKIN: Warm, Dry, normal turgor, no rashes or lesions noted. HEMATOLOGIC/LYMPHATIC: No anemia, easy bleeding, or history of blood clots. ALLERGIC/IMMUNOLOGIC: No hives or skin allergy. <Patria Mcgregor - Last Filed: 08/19/16 15:38> - Vital Signs Last Vital Signs Temp Pulse Resp BP Pulse Ox 98.9 F 89 16 124/64 98 08/19/16 14:09 08/19/16 14:09 08/19/16 14:09 08/19/16 14:09 08/19/16 14:09 <Jay Waters - Last Filed: 08/19/16 16:11> Heart Score/ECG Review #1 ECG reviewed & interpreted by me at: 14:40 08/19/16 15:00 NSR 78, submmSTD II, avf, v3-V5 with dig swoop (unchanged from prior in June), no NUHA, QTC 469 msec <Jay Waters - Last Filed: 08/19/16 16:11> ED Treatment Course - RADIOLOGY Radiograph Interpretation: 08/19/16 15:[address] Impression: Normal noncontrast CT of the brain except for involutional and periventricular white matter changes. Reported By: Joseph Dye MD <Patria Mcgregor - Last Filed: 08/19/16 15:38> - RADIOLOGY Radiology Studies Ordered: Category Date Time Status HEAD CT WITHOUT CONTRAST [CT] Stat CT Scan 08/19/16 14:17 Completed <Jay Waters - Last Filed: 08/19/16 16:11> Medical Decision Making - Medical Decision Making 08/19/16 14:59 A portion of this note was documented by scribe services under my direction. I have reviewed the details of the note, within reason, and agree with the documentation with the following case summary and management plan written by me. Patient treated in the ED. Nursing notes are reviewed and incorporated into the medical decision-making. Vital signs reviewed. Peripheral IV access obtained by the nurse, laboratory studies are drawn and sent, reviewed and interpreted by myself. Vital Signs Temp Pulse Resp BP Pulse Ox 98.9 F 72 16 143/73 98 08/19/16 14:09 08/19/16 14:56 08/19/16 14:09 08/19/16 14:56 08/19/16 14:09 80 year old female with past medical history dementia, orthostatic hypotension, hyperlipidemia, frequent falls presents with walked into a wall. Patient had walked in wall and was soon afterwards unstable. According to the patient's doctor, , the patient has lately been feeling lightheaded and falling frequently which he suspects is secondary to orthostatic hypotension. The patient was recently taken off medications for her orthostatic hypotension which may have led to her feeling more lightheaded. Patient herself is an unreliable historian as she reports that everything is fine. Denies chest pain or shortness of breath. Physical exam demonstrates no acute findings. Head CT ordered which demonstrates no acute hemorrhage. I had spoken to the doctor who requests an EKG and orthostatic vital signs. States that if the patient is orthostatic, will likely reinitiate florinef. 08/19/16 16:05 Patient's ECG unchanged. Head CT unremarkable. Orthostatic positive. Case discussed with DR. Vides. He will restart the orthostatic medication. Pt's daughter contacted and aware of plan. Will discharge back home to living assisted facility, [facility]. I discussed the physical exam findings, ancillary test results and final diagnoses with the patient. I answered all of the patient's questions. The patient was satisfied with the care received and felt comfortable with the discharge plan and treatment plan. The patient will call their primary care physician within 24 hours to arrange follow-up and will return to the Emergency Department with any new, persistant or worsening symptoms. <Jay Waters - Last Filed: 08/19/16 16:11> *DC/Admit/Observation/Transfer - Attestations Scribe Attestion: 08/19/16 15:41 Documentation prepared by Patria Mcgregor, acting as nurses medical assistants phlebotomists for Jay Waters MD. <Patria Mcgregor - Last Filed: 08/19/16 15:38> - Discharge Dispostion Admit: No <Jay Waters - Last Filed: 08/19/16 16:11> Diagnosis at time of Disposition: Orthostatic hypotension Head injury Qualifiers: Encounter type: initial encounter Qualified Code(s): S09.90XA - Unspecified injury of head, initial encounter - Discharge Dispostion Disposition: [facility] Condition at time of disposition: Stable - Patient Instructions Printed Discharge Instructions: DI for Closed Head Injury, DI for Orthostatic Hypotension Additional Instructions: The head CT shows no findings. The orthostatic vital signs were positive. I had discussed the case with the patient's doctor, Dr. Vides. He will readjust your medications.
--- NOTE | 2016-08-20 08:30 | EKG ---
Test Reason : Blood Pressure : / mmHG Vent. Rate : 078 BPM Atrial Rate : 078 BPM P-R Int : 166 ms QRS Dur : 088 ms QT Int : 412 ms P-R-T Axes : 073 051 043 degrees QTc Int : 469 ms NORMAL SINUS RHYTHM NONSPECIFIC ST ABNORMALITY ABNORMAL ECG WHEN COMPARED WITH ECG OF 19-JUL-2016 05:37, NO SIGNIFICANT CHANGE WAS FOUND Confirmed by CUCO GARCES MD ([id number]) on 08/20/2016 8:29:45 AM Referred By: DAE MACHADO Confirmed By:CUCO GARCES MD
== END 2016-08-19 17:10 ==
LOC: FER 14:08
DX: I95.1 Orthostatic hypotension (principal); F03.90 Unspecified dementia, unspecified severity, without behavioral disturbance, psychotic disturbance, mood disturbance, and anxiety; F32.9 Major depressive disorder, single episode, unspecified
CPT/HCPCS: 70450-TC; 93005; 99282-25

== ENCOUNTER 2016-09-08 09:34 | Observation (INO) | payer OTHER ==
[2016-09-08 10:33] LABS: BASOPHIL 1.5 % (0-2.0); EOSINOPHIL 0.2 % (0-4.5); MCH 29.7 pg (25.7-33.7); MCHC 33.8 g/dl (32.0-36.0); MEAN CELL VOLUME 87.9 fl (80-96); MEAN PLT VOLUME 8.1 fl (7.5-11.1); NEUTROPHILS 79.8 % (42.8-82.8); PLATELET COUNT 237 K/MM3 (134-434); RDW 14.5 % (11.6-15.6); WHITE BLOOD COUNT 11.1 K/mm3 (4.0-10.8)
[2016-09-08 10:36] LABS: ALBUMIN 3.6 g/dl (3.5-5.0); ALK PHOS 120 U/L (32-92); ANION GAP 4 (8-16); BILIRUBIN,TOTAL 0.9 mg/dl (0.2-1.0); CALCIUM 8.3 mg/dl (8.4-10.2); CO2 27 mmol/L (22-28); CREATININE 0.8 mg/dl (0.6-1.3); GLUCOSE,RANDOM 119 mg/dl (74-106); PHOSPHOROUS 3.7 mg/dl (2.5-4.6); SGOT/AST 20 U/L (10-42); SGPT/ALT 29 U/L (10-40)
[2016-09-08 10:37] LABS: CPK(DFH) 47 IU/L (26-140)
[2016-09-08 10:38] LABS: ACTIVATED PTT 23.4 SECONDS (24.0-38.9)
[2016-09-08 10:42] LABS: INR 1.05 (0.82-1.09); PROTHROMBIN TIME (PATIENT) 11.7 SEC (10.2-13.0)
[2016-09-08 10:47] LABS: PH,URINE 7.5 (4.5-8); URINE APPEARANCE Clear; URINE BILIRUBIN Negative (NEGATIVE); URINE BLOOD Negative (NEGATIVE); URINE COLOR YELLOW; URINE GLUCOSE (UA) Negative (NEGATIVE); URINE KETONE Negative (NEGATIVE); URINE LEUK ESTERASE Negative (NEGATIVE); URINE NITRITE Negative (NEGATIVE); URINE PROTEIN Negative (NEGATIVE); URINE UROBILINOGEN 0.2 E.U/dl (0.2-1.0)
[2016-09-08 10:54] LABS: TROPONIN I (DFP) < 0.03 ng/ml (0.03-0.50)
--- NOTE | 2016-09-08 11:14 | PDOC ---
Attending Attestation - Resident Resident Name: Chandan Garcias - ED Attending Attestation I have performed the following: I have examined & evaluated the patient, The case was reviewed & discussed with the resident, I agree w/resident's findings & plan, Exceptions are as noted - HPI HPI: 09/08/16 11:58 Agree with the resident's HPI as documented in the electronic medical record. - Physicial Exam PE: 09/08/16 11:58 Agree with the resident's physical examination as documented in the electronic medical record. - Medical Decision Making 09/08/16 11:58 80-year-old female with history of orthostatic hypotension, dementia, episodes of atrial fibrillation who presents to the emergency department following an unwitnessed fall at the nursing homethe patient states that she passed out; the patient complains of left wrist pain and she has a contusion to the center of her 4 head. She has also had multiple falls over the past few months. Differential diagnosis includes but is not limited to: Syncope, symptomatic bradycardia, orthostatic hypotension, Sick-Sinus Syndrome, infection, electrolyte abnormality, dehydration dementia, traumatic brain injury, wrist fracture. Plan: 1. EKGshows normal sinus bradycardia at approximately [address]pm with no acute [address]- segment changes. 2. Labs 3. Urine analysis 3. Chest x-ray 4. CT head 5. Will admit to a monitored setting for serial cardiac markers girders and syncope workup
--- NOTE | 2016-09-08 11:32 | PDOC ---
History of Present Illness - General History Source: Patient, Family (Daughter) Exam Limitations: Dementia - History of Present Illness Initial Comments: 09/08/16 11:27 Patient is a 80F with a PMH of dementia, orthostatic hypotension, hyperlipidemia , a-fib, and frequent falls who presented via EMS after a fall. The patient is a poor historian secondary to memory loss from dementia. The patient states that she passed out around 8am this morning and was woken up by aids. She is unsure of the downtime or any head trauma. She did say she lost consciousness, but was oriented when she woke up. She is unsure about the last time that this has happened. She states that nothing brings it on and nothing makes it better or worse. The daughter states that these syncopal episodes have been occuring weekly. Her PCP has been tweaking her medications to balance her hypertension and orthostatic hypotension. She is not on any blood thinners. ROS+: per HPI ROS-: changes in vision, CP, SOB, headache, numbness, tingling, weakness, fever , chills, nausea vomiting, dysuria Social: Does not smoke, drink, or use recreational drugs Allergies: NKDA <Chandan Garcias - Last Filed: 09/08/16 11:27> <Yulisa Lujan - Last Filed: 09/08/16 12:09> - General Chief Complaint: Injury Stated Complaint: FALL Time Seen by Provider: 09/08/16 09:42 Past History - Past Medical History Cardiac Disorders: Yes (HYPOTENSION, AFIB) Dementia: Yes (SENILE DEGENERATION) Hypercholesterolemia: Yes Psychiatric Problems: Yes (DEPRESSION) - Psycho/Social/Smoking Cessation Hx Anxiety: Yes (DEPRESSION) Suicidal Ideation: No (UNABLE TO ASSESS PT HAS DEMENTIA) Smoking History: Unknown if ever smoked Have you smoked in the past 12 months: No Information on smoking cessation initiated: No Hx Alcohol Use: No Drug/Substance Use Hx: No Substance Use Type: None Hx Substance Use Treatment: No <Chandan Garcias - Last Filed: 09/08/16 11:27> <Yulisa Lujan - Last Filed: 09/08/16 12:09> - Past Medical History Allergies/Adverse Reactions: Allergies Allergy/AdvReac Type Severity Reaction Status Date / Time No Known Allergies Allergy Verified 09/08/16 09:36 Home Medications: Ambulatory Orders Atorvastatin Ca [Lipitor] 40 mg PO DAILY 07/18/16 Bupropion HCl [Wellbutrin Xl -] 150 mg PO DAILY 07/18/16 Cholecalciferol (Vitamin D3) [Vitamin D3] 2,000 unit PO DAILY 07/18/16 Citalopram Hydrobromide [Citalopram HBr] 40 mg PO DAILY 07/18/16 Donepezil HCl 23 mg PO DAILY 07/18/16 Fludrocortisone Acetate [Florinef -] 0.1 mg PO BID 07/18/16 Memantine HCl [Namenda Xr] 28 mg PO DAILY 07/18/16 Aspirin [ASA -] 81 mg PO DAILY 08/19/16 Famotidine [Pepcid] 20 mg PO BID 09/08/16 Hydroxyzine HCl 95 mg PO TID 09/08/16 Midodrine HCl 2.5 mg PO DAILY 09/08/16 Prednisone [Deltasone -] 20 mg PO ASDIR 09/08/16 Review of Systems - Review of Systems Able to Perform ROS?: Yes Is the patient limited Vietnamese proficient: No Constitutional: No: Chills, Fever, Weakness HEENTM: No: Blurred Vision, Recent change in vision Respiratory: No: Shortness of Breath Cardiac (ROS): Yes: Syncope. No: Chest Pain ABD/GI: No: Abdominal Distended, Nausea, Vomiting : No: Dysuria, Discharge Neurological: No: Headache, Numbness, Paresthesia, Tingling, Weakness <Chandan Garcias - Last Filed: 09/08/16 11:27> *Physical Exam - Vital Signs Last Vital Signs Temp Pulse Resp BP Pulse Ox 98.5 F 61 18 197/97 95 09/08/16 09:34 09/08/16 10:46 09/08/16 10:46 09/08/16 10:46 09/08/16 10:46 - Physical Exam General Appearance: Yes: Nourished, Appropriately Dressed. No: Apparent Distress HEENT: positive: Normal Voice. negative: Photophobia, Scleral Icterus (R), Scleral Icterus (L) Respiratory/Chest: positive: Lungs Clear, Normal Breath Sounds. negative: Chest Tender, Respiratory Distress, Accessory Muscle Use Cardiovascular: positive: Regular Rate, S1, S2, Bradycardia Gastrointestinal/Abdominal: positive: Flat, Soft. negative: Tender Extremity: positive: Other (Abrasions present on b/l tibial tuberosities). negative: Swelling Integumentary: positive: Dry, Warm, Petechiae. negative: Swelling Neurologic: positive: heat reader II-XII NML intact, Fully Oriented, Alert, Normal Mood/ Affect, Normal Response, Motor Strength 5/5, Finger to Nose. negative: Facial Droop, Sensory Deficit, Disoriented <Chandan Garcias - Last Filed: 09/08/16 11:27> - Vital Signs Last Vital Signs Temp Pulse Resp BP Pulse Ox 98.5 F 61 18 197/97 95 09/08/16 09:34 09/08/16 10:46 09/08/16 10:46 09/08/16 10:46 09/08/16 10:46 <Yulisa Lujan - Last Filed: 09/08/16 12:09> Heart Score/ECG Review - ECG Impressions Bradycardia: Yes <Chandan Garcias - Last Filed: 09/08/16 11:27> ED Treatment Course - LABORATORY CBC & Chemistry Diagram: 09/08/16 10:10 09/08/16 10:10 - ADDITIONAL ORDERS Additional order review: Laboratory Results 09/08/16 09/08/16 09/08/16 10:30 10:10 10:10 INR PTT (Actin FS) Sodium 135 L Potassium 3.6 Chloride 104 Carbon Dioxide 27 Anion Gap 4 L BUN 17 Creatinine 0.8 Creat Clearance w eGFR > 60 Random Glucose 119 H D Calcium 8.3 L Phosphorus 3.7 Magnesium 2.0 Total Bilirubin 0.9 D AST 20 ALT 29 D Alkaline Phosphatase 120 H Creatine Kinase 47 Troponin I < 0.03 L Total Protein 6.0 L Albumin 3.6 Urine Color Yellow Urine Appearance Clear Urine pH 7.5 Ur Specific [place] 1.015 Urine Protein Negative Urine Glucose (UA) Negative Urine Ketones Negative Urine Blood Negative Urine Nitrite Negative Urine Bilirubin Negative Urine Urobilinogen 0.2 e.u/dl Ur Leukocyte Esterase Negative 09/08/16 10:10 INR 1.05 PTT (Actin FS) 23.4 L Sodium Potassium Chloride Carbon Dioxide Anion Gap BUN Creatinine Creat Clearance w eGFR Random Glucose Calcium Phosphorus Magnesium Total Bilirubin AST ALT Alkaline Phosphatase Creatine Kinase Troponin I Total Protein Albumin Urine Color Urine Appearance Urine pH Ur Specific [place] Urine Protein Urine Glucose (UA) Urine Ketones Urine Blood Urine Nitrite Urine Bilirubin Urine Urobilinogen Ur Leukocyte Esterase 09/08/16 10:10 RBC 3.74 MCV 87.9 MCHC 33.8 RDW 14.5 MPV 8.1 Neutrophils % 79.8 D Lymphocytes % 12.7 D Monocytes % 5.8 Eosinophils % 0.2 D Basophils % 1.5 <Chandan Garcias - Last Filed: 09/08/16 11:27> - LABORATORY CBC & Chemistry Diagram: 09/08/16 10:10 09/08/16 10:10 - ADDITIONAL ORDERS Additional order review: Laboratory Results 09/08/16 09/08/16 09/08/16 10:30 10:10 10:10 INR PTT (Actin FS) Sodium 135 L Potassium 3.6 Chloride 104 Carbon Dioxide 27 Anion Gap 4 L BUN 17 Creatinine 0.8 Creat Clearance w eGFR > 60 Random Glucose 119 H D Calcium 8.3 L Phosphorus 3.7 Magnesium 2.0 Total Bilirubin 0.9 D AST 20 ALT 29 D Alkaline Phosphatase 120 H Creatine Kinase 47 Troponin I < 0.03 L Total Protein 6.0 L Albumin 3.6 Urine Color Yellow Urine Appearance Clear Urine pH 7.5 Ur Specific [place] 1.015 Urine Protein Negative Urine Glucose (UA) Negative Urine Ketones Negative Urine Blood Negative Urine Nitrite Negative Urine Bilirubin Negative Urine Urobilinogen 0.2 e.u/dl Ur Leukocyte Esterase Negative 09/08/16 10:10 INR 1.05 PTT (Actin FS) 23.4 L Sodium Potassium Chloride Carbon Dioxide Anion Gap BUN Creatinine Creat Clearance w eGFR Random Glucose Calcium Phosphorus Magnesium Total Bilirubin AST ALT Alkaline Phosphatase Creatine Kinase Troponin I Total Protein Albumin Urine Color Urine Appearance Urine pH Ur Specific [place] Urine Protein Urine Glucose (UA) Urine Ketones Urine Blood Urine Nitrite Urine Bilirubin Urine Urobilinogen Ur Leukocyte Esterase 09/08/16 10:10 RBC 3.74 MCV 87.9 MCHC 33.8 RDW 14.5 MPV 8.1 Neutrophils % 79.8 D Lymphocytes % 12.7 D Monocytes % 5.8 Eosinophils % 0.2 D Basophils % 1.5 - RADIOLOGY Radiology Studies Ordered: Category Date Time Status HEAD CT WITHOUT CONTRAST [CT] Stat CT Scan 09/08/16 09:57 Completed CHEST PA & LAT [RAD] Stat Radiology 09/08/16 09:57 Completed WRIST-LEFT [RAD] Stat Radiology 09/08/16 09:58 Completed - Medications Given in the ED: ED Medications Discontinued Medications Generic Name Dose Route Start Last Admin Trade Name Javier JACQUES Reason Stop Dose Admin Aspirin 81 mg 09/08/16 11:54 09/08/16 11:58 Ecotrin - PO 09/08/16 11:55 Not Given NOW ONE Bupropion HCl 150 mg 09/08/16 11:53 09/08/16 11:58 Wellbutrin Xl - PO 09/08/16 11:54 Not Given NOW ONE Citalopram Hydrobromide 40 mg 09/08/16 11:52 09/08/16 11:58 Celexa - PO 09/08/16 11:53 Not Given NOW ONE Donepezil HCl 23 mg 09/08/16 11:52 09/08/16 11:58 Aricept - PO 09/08/16 11:53 Not Given NOW ONE Memantine 28 mg 09/08/16 11:52 09/08/16 11:58 Namenda - PO 09/08/16 11:53 Not Given NOW ONE <Yulisa Lujan - Last Filed: 09/08/16 12:09> Medical Decision Making - Medical Decision Making 09/08/16 11:34 Patient is a 80F with a PMH of dementia, orthostatic hypotension, and frequent falls who presents to the ED via EMS for an unwitnessed fall. The patient is hypertensive while laying down (206/82) but has an otherwise normal physical exam. DDx: orthostatic hypotension, stroke, dehydration, medication error, a-fib , aortic stenosis, cardiac rhythm abnormalities. EKG is sinus bradycardia. Head CT shows no acute pathology. Daughter is present in the room and is providing additional history of frequent falls and lack of compliance to MD's advice which leads to frequent falls. She is also updated on patient status/labs/imaging. <Chandan Garcias - Last Filed: 09/08/16 11:27> *DC/Admit/Observation/Transfer <Chandan Garcias - Last Filed: 09/08/16 11:27> - Discharge Dispostion Admit: Yes <Yulisa Lujan - Last Filed: 09/08/16 12:09> Diagnosis at time of Disposition: Syncope, Contusion of head - Discharge Dispostion Condition at time of disposition: Stable
[2016-09-08] MEDS ORDERED: MEMANTINE HCL 10 MG TABLET (FP) PO ONE (11:52)
[2016-09-08] MEDS ORDERED: DONEPEZIL HCL 10 MG TABLET (FP) PO ONE (11:52)
[2016-09-08] MEDS ORDERED: CITALOPRAM HYDROBROMIDE 20 MG TABLET (FP) PO ONE (11:52)
[2016-09-08] MEDS ORDERED: ASPIRIN COATED 81 MG TABLET.EC PO ONE (11:54)
[2016-09-08] MEDS ORDERED: amLODIPine BESYLATE 5 MG TABLET (FP) PO ONE (12:09)
[2016-09-08] MEDS ORDERED: amLODIPine BESYLATE 5 MG TABLET (FP) ONE ×2 (12:10→12:11)
--- NOTE | 2016-09-08 12:26 | HP ---
CHIEF COMPLAINT: questionable syncope PCP: Dr Vides Card: Dr Mancilla HISTORY OF PRESENT ILLNESS: Patient is a 80 y/o female with a past medical history of paroxysmal afib (no AC), orthostatic hypotension (adrenal insufficiency), hyperlipidemia, depression, and senile dementia. Patient resides at the [facility] assisted living. Patient reports she loss consciousness at approximately 0800 on this date. The incident was unwitnessed. She reports being awaken by the nursing aid and was unsure if she struck her head. Daughter reports frequent syncope episodes weekly. Patient was recently on digoxin, however, she developed hives and the medication was discontinued last week. In addition, patient was evaluated by her pcp, Dr Vides and she was placed by on midorine 2.5mg BID ER course was notable for: (1) ct of head no acute intracranial pathology, soft tissue swelling noted (2) ekg sinus bradycardia non specific t wave abnormality (3) troponin x 1 wnl Recent Travel: none PAST MEDICAL HISTORY: see hpi PAST SURGICAL HISTORY: tonsillectomy Social History: resides at [facility] Smoking: none Alcohol: none Drugs: none Family History: non contributory Allergies No Known Allergies Allergy (Verified 09/08/16 09:36) HOME MEDICATIONS: Home Medications Medication Instructions Recorded Atorvastatin Ca [Lipitor] 40 mg PO DAILY 07/18/16 Bupropion HCl [Wellbutrin Xl -] 150 mg PO DAILY 07/18/16 Cholecalciferol (Vitamin D3) 2,000 unit PO DAILY 07/18/16 [Vitamin D3] Citalopram Hydrobromide 40 mg PO DAILY 07/18/16 [Citalopram HBr] Donepezil HCl 23 mg PO DAILY 07/18/16 Fludrocortisone Acetate [Florinef 0.1 mg PO BID 07/18/16 -] Memantine HCl [Namenda Xr] 28 mg PO DAILY 07/18/16 Aspirin [ASA -] 81 mg PO DAILY 08/19/16 Famotidine [Pepcid] 20 mg PO BID 09/08/16 Hydroxyzine HCl 95 mg PO TID 09/08/16 Midodrine HCl 2.5 mg PO DAILY 09/08/16 Prednisone [Deltasone -] 20 mg PO ASDIR 09/08/16 REVIEW OF SYSTEMS CONSTITUTIONAL: Absent: fever, chills, diaphoresis, generalized weakness, malaise, loss of appetite, weight change HEENT: Absent: rhinorrhea, nasal congestion, throat pain, throat swelling, difficulty swallowing, mouth swelling, ear pain, eye pain, visual changes CARDIOVASCULAR: Absent: chest pain, syncope, palpitations, irregular heart rate, lightheadedness , peripheral edema RESPIRATORY: Absent: cough, shortness of breath, dyspnea with exertion, orthopnea, wheezing, stridor, hemoptysis GASTROINTESTINAL: Absent: abdominal pain, abdominal distension, nausea, vomiting, diarrhea, constipation, melena, hematochezia GENITOURINARY: Absent: dysuria, frequency, urgency, hesitancy, hematuria, flank pain, genital pain MUSCULOSKELETAL: Absent: myalgia, arthralgia, joint swelling, back pain, neck pain SKIN: Absent: rash, itching, pallor HEMATOLOGIC/IMMUNOLOGIC: Absent: easy bleeding, easy bruising, lymphadenopathy, frequent infections ENDOCRINE: Absent: unexplained weight gain, unexplained weight loss, heat intolerance, cold intolerance NEUROLOGIC: present: syncope Absent: headache, focal weakness or paresthesias, dizziness, unsteady gait, seizure, bladder or bowel incontinence PSYCHIATRIC: Absent: anxiety, depression, suicidal or homicidal ideation, hallucinations. PHYSICAL EXAMINATION Vital Signs - 24 hr 09/08/16 09/08/16 09:34 10:46 Temperature 98.5 F Pulse Rate 56 L Pulse Rate [ 61 Left Apical] Respiratory 18 18 Rate Blood Pressure 181/82 Blood Pressure 197/97 [Right Arm] O2 Sat by Pulse 96 95 Oximetry (%) Vital Signs - 24 hr 09/08/16 09/08/16 09/08/16 09:34 10:46 13:25 Temperature 98.5 F Pulse Rate 56 L Pulse Rate [ 61 56 L Left Apical] Respiratory 18 18 16 Rate Blood Pressure 181/82 Blood Pressure 197/97 195/83 [Right Arm] O2 Sat by Pulse 96 95 97 Oximetry (%) 09/08/16 09/08/16 13:30 13:35 Temperature Pulse Rate Pulse Rate [ 67 60 Left Apical] Respiratory 18 18 Rate Blood Pressure Blood Pressure 180/73 176/97 [Right Arm] O2 Sat by Pulse 96 97 Oximetry (%) GENERAL: Awake, alert, and fully oriented, in no acute distress. HEAD: abrasion noted to forehead, no bogginess noted EYES: Pupils equal, round and reactive to light, extraocular movements intact, sclera anicteric, conjunctiva clear. No lid lag. EARS, NOSE, THROAT: Ears normal, nares patent, oropharynx clear without exudates. Moist mucous membranes. NECK: Normal range of motion, supple without lymphadenopathy, JVD, or masses. LUNGS: Breath sounds equal, clear to auscultation bilaterally. No wheezes, and no crackles. No accessory muscle use. HEART: Regular rate and rhythm, normal S1 and S2, 2/6 systolic murmur, rub or gallop. ABDOMEN: Soft, nontender, not distended, normoactive bowel sounds, no guarding, no rebound, no masses. No hepatomegaly or splenomegaly. MUSCULOSKELETAL: Normal range of motion at all joints. No bony deformities or tenderness. No CVA tenderness. UPPER EXTREMITIES: 2+ pulses, warm, well-perfused. No cyanosis. No clubbing. No peripheral edema. LOWER EXTREMITIES: 2+ pulses, warm, well-perfused. No calf tenderness. No peripheral edema. NEUROLOGICAL: Cranial nerves II-XII intact. Normal speech. Normal gait. PSYCHIATRIC: Cooperative. Good eye contact. Appropriate mood and affect. SKIN: Warm, dry, normal turgor, uriticaria noted to billateral lower extremities , abrasion noted to bilateral knees. . Laboratory Results - last 24 hr 09/08/16 09/08/16 09/08/16 10:10 10:10 10:10 WBC 11.1 H D RBC 3.74 Hgb 11.1 Hct 32.9 MCV 87.9 MCH 29.7 MCHC 33.8 RDW 14.5 Plt Count 237 MPV 8.1 Neutrophils % 79.8 D Lymphocytes % 12.7 D Monocytes % 5.8 Eosinophils % 0.2 D Basophils % 1.5 INR 1.05 PTT (Actin FS) 23.4 L Sodium 135 L Potassium 3.6 Chloride 104 Carbon Dioxide 27 Anion Gap 4 L BUN 17 Creatinine 0.8 Creat Clearance w eGFR > 60 Random Glucose 119 H D Calcium 8.3 L Phosphorus 3.7 Magnesium 2.0 Total Bilirubin 0.9 D AST 20 ALT 29 D Alkaline Phosphatase 120 H Creatine Kinase Troponin I Total Protein 6.0 L Albumin 3.6 Urine Color Urine Appearance Urine pH Ur Specific [place] Urine Protein Urine Glucose (UA) Urine Ketones Urine Blood Urine Nitrite Urine Bilirubin Urine Urobilinogen Ur Leukocyte Esterase 09/08/16 09/08/16 10:10 10:30 WBC RBC Hgb Hct MCV MCH MCHC RDW Plt Count MPV Neutrophils % Lymphocytes % Monocytes % Eosinophils % Basophils % INR PTT (Actin FS) Sodium Potassium Chloride Carbon Dioxide Anion Gap BUN Creatinine Creat Clearance w eGFR Random Glucose Calcium Phosphorus Magnesium Total Bilirubin AST ALT Alkaline Phosphatase Creatine Kinase 47 Troponin I < 0.03 L Total Protein Albumin Urine Color Yellow Urine Appearance Clear Urine pH 7.5 Ur Specific [place] 1.015 Urine Protein Negative Urine Glucose (UA) Negative Urine Ketones Negative Urine Blood Negative Urine Nitrite Negative Urine Bilirubin Negative Urine Urobilinogen 0.2 e.u/dl Ur Leukocyte Esterase Negative ASSESSMENT/PLAN: 1) card syncopal episode secondary to orthostatic hypotension - case discussed with patient's PCP (Dr Vides) and [employer]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) pt had multiple syncopal episodes in the past due to orthostatic hypotension, last nuclear stress last month as per Dr Mancilla was WNL, ECHO (08/16) LV WNL EF 70%, halter monitor (08/16) 10 beat runs of afib - troponin x 1 wnl, pending 2nd and third - orthostatic vital signs noted, patient is orthostatic - continue midorine home dose 2.5mg bid first dose in AM then 2nd dose at 5pm - fall precautions - appreciate cardiology input hypertension - trial norvasc 5mg po x 1, with strict b/p monitoring 2) neuro dementia - continue aricept depression - continue celexa 3) derm allergic uriticaria - continue prednisone as per home dose taper - caution with benardryl due to syncope f/e/n - low sodium diet - replete lytes prin ppx - no ac history of falls - pepcid dispo: requires obsv telemetry Visit type - Emergency Visit Emergency Visit: Yes ED Registration Date: 09/08/16 Care time: The patient presented to the Emergency Department on the above date and was hospitalized for further evaluation of their emergent condition. - New Patient This patient is new to me today: No - Critical Care Critical Care patient: No
[2016-09-08] MEDS ORDERED: ACETAMINOPHEN 325 MG TABLET (FP) PO PRN (13:59)
[2016-09-08 15:10] VITALS: BMI 24.9
[2016-09-08] MEDS ORDERED: PT OWN MED DRAWER 7, Y5N ONE (17:05)
[2016-09-08 17:11] LABS: CPK(DFH) 57 IU/L (26-140)
[2016-09-08] MEDS: MIDODRINE HCL 2.5 MG TABLET PO SCH ×2 (17:16→17:36)
--- NOTE | 2016-09-08 17:36 | CONSULT ---
Consult Consult Specialty:: Cardiology Referred by:: Stella Banegas Reason for Consultation:: Syncope - History of Present Illness Chief Complaint: syncope History of Present Illness: 80 yo female, with history of Alzheimer's dementia, HLD, orthostatic hypotension , frequent falls/syncope, recent admission here in 07/16 with syncope -. found in rapid afib 0-. SR after IV dig, recently restarted on midodrine because of frequent episodes, here with another episode. Aides found her reportedly. She also had a fall yesterday. Patient not able to contribute to story. She denies any symptoms at this time. PMH Hypercholesteremia Orthostatic hypotension, due to adrenal insufficiency PAF 0> documente din 07/06 -. SR after IV dih Frequent falls Dementia, Alzheimer's Mood disorder Wrist fracture, right05/06/15, from fall Cardiac Studies Echo (08/29/16) technically limited study over all normal to low normal systolic function. ejection fraction 55%. mild mitral regurgitation. prior studies are not available for comparison. Lexiscan Nuclear (09/05/16) No chest pain or ST-T changes with regadenoson stress. However, please note that LA & LL lead reversal was noted. No arrhythmias were noted during stress or rest. Normal rest/stress SPECT myocardial perfusion study. Normal LV wall motion with LVEF of 73%. Of note, a small area of radiotracer activity was noted in the left breast region. Clinical correlation is recommended. Holter (08/16) SR with short afib runs - Past Medical History ORACLE ARCHITECT: Yes: Dementia Cardio/Vascular: Yes: Hyperlipdemia, Other (orthostatic hypotension) - Past Surgical History Past Surgical History: Yes: Tonsillectomy - Alcohol/Substance Use Hx Alcohol Use: No - Smoking History Smoking history: Never smoked Have you smoked in the past 12 months: No - Social History Usual Living Arrangement: Assisted Living Home Medications - Allergies Allergies/Adverse Reactions: Allergies Allergy/AdvReac Type Severity Reaction Status Date / Time No Known Allergies Allergy Verified 09/08/16 09:36 - Home Medications Home Medications: Ambulatory Orders Atorvastatin Ca [Lipitor] 40 mg PO DAILY 07/18/16 Bupropion HCl [Wellbutrin Xl -] 150 mg PO DAILY 07/18/16 Cholecalciferol (Vitamin D3) [Vitamin D3] 2,000 unit PO DAILY 07/18/16 Citalopram Hydrobromide [Citalopram HBr] 40 mg PO DAILY 07/18/16 Donepezil HCl 23 mg PO DAILY 07/18/16 Fludrocortisone Acetate [Florinef -] 0.1 mg PO BID 07/18/16 Memantine HCl [Namenda Xr] 28 mg PO DAILY 07/18/16 Aspirin [ASA -] 81 mg PO DAILY 08/19/16 Famotidine [Pepcid] 20 mg PO BID 09/08/16 Hydroxyzine HCl 95 mg PO TID 09/08/16 Midodrine HCl 2.5 mg PO DAILY 09/08/16 Prednisone [Deltasone -] 20 mg PO ASDIR 09/08/16 Family Disease History - Family Disease History Family History: Denies (premature CAD) Review of Systems Unable to obtain ROS, reason: due to MS Physical Exam Vital Signs: Vital Signs Temperature 97.6 F 09/08/16 14:45 Pulse Rate 77 09/08/16 17:16 Respiratory Rate 18 09/08/16 14:45 Blood Pressure 189/79 09/08/16 17:16 O2 Sat by Pulse Oximetry (%) 97 09/08/16 14:45 Constitutional: Yes: No Distress Eyes: Yes: Conjunctiva Clear HENT: Yes: Other (bruise in center of forehead) Neck: Yes: Supple Cardiovascular: Yes: Regular Rate and Rhythm, Murmur Respiratory: Yes: CTA Bilaterally Gastrointestinal: Yes: Normal Bowel Sounds, Soft. No: Tenderness Edema: No Peripheral Pulses WNL: Yes Neurological: Yes: Alert, Oriented Psychiatric: Yes: Alert, Oriented Imaging - Results Chest X-ray: Report Reviewed, Image Reviewed EKG: Report Reviewed, Image Reviewed (SR with NSST changes) Assessment/Plan 80 yo female with the above history, here with another syncopal episode -. presumed from her orthostasis. BPs however are very high and she is minimally othostatic, going from supine to sitting Given her PAF, however, we have to entertain possible kristopher episodes, especially in setting of conversion from afib to SR Recent holter was unrevealing. Pt's daughter says an event-recorder attempted last year was a "disaster" -> an ILR might be a better alternative No evidence of ACS -. recent nuclear on 08/06/16n was w/o ischemia Recent echo on 08/29/16 showed nl EF and no sign valvular disease Rec: Cont serial José Continue tele Follow BP for now -> avoid treating BP -. may have to if remains high in AM ILR to be considered as outpt Iu future, hydration, compression stockings to be stressed on pt -/. per daughter, she is not compliant with those. She also says that, in spite of what pt says, she gets a prodrome, as they've watched her before the syncopal episodes happen. Thanks! We'll follow! D/w daughter at length
[2016-09-08 17:44] LABS: TROPONIN I (DFP) < 0.03 ng/ml (0.03-0.50)
[2016-09-08] MEDS: FAMOTIDINE 20 MG TABLET PO SCH (21:35)
[2016-09-08] MEDS: FLUDROCORTISONE ACETATE 0.1 MG TABLET (FP) PO SCH (22:05)
[2016-09-09 08:24] LABS: BASOPHIL 0.5 % (0-2.0); EOSINOPHIL 8.1 % (0-4.5); MCH 29.3 pg (25.7-33.7); MCHC 33.6 g/dl (32.0-36.0); MEAN PLT VOLUME 7.9 fl (7.5-11.1); NEUTROPHILS 72.6 % (42.8-82.8); PLATELET COUNT 233 K/MM3 (134-434); RDW 14.5 % (11.6-15.6); WHITE BLOOD COUNT 10.1 K/mm3 (4.0-10.8)
[2016-09-09 08:33] LABS: ANION GAP 7 (8-16); CALCIUM 8.3 mg/dl (8.4-10.2); CO2 30 mmol/L (22-28); CREATININE 1.1 mg/dl (0.6-1.3); GLUCOSE,RANDOM 102 mg/dl (74-106); PHOSPHOROUS 3.6 mg/dl (2.5-4.6)
[2016-09-09 08:35] LABS: CPK(DFH) 39 IU/L (26-140)
--- NOTE | 2016-09-09 09:10 | DS ---
Physical Exam: SUBJECTIVE: Patient seen and examined, patient reports feeling well, denies any headache, chest pain or dizziness OBJECTIVE: Patient is a 80 y/o female with a past medical history of paroxysmal afib (no AC ), orthostatic hypotension (adrenal insufficiency), hyperlipidemia, depression, and senile dementia. Patient resides at the [facility] living. Patient reports she loss consciousness at approximately 0800 on this date. The incident was unwitnessed. She reports being awaken by the nursing aid and was unsure if she struck her head. Daughter reports frequent syncope episodes weekly. Patient was recently on digoxin, however, she developed hives and the medication was discontinued last week. In addition, patient was evaluated by her pcp, Dr Vides and she was placed by on midorine 2.5mg BID ER course was notable for: (1) ct of head no acute intracranial pathology, soft tissue swelling noted (2) ekg sinus bradycardia non specific t wave abnormality (3) troponin x 1 wnl Vital Signs Period Temp Pulse Resp BP Sys/Amador Pulse Ox Last 24 Hr 97.6 F-100.6 F 56-78 16-18 148-195/55-79 94-97 PHYSICAL EXAM GENERAL: Awake, alert, and fully oriented, in no acute distress. HEAD: abrasion noted to forehead, no bogginess noted EYES: Pupils equal, round and reactive to light, extraocular movements intact, sclera anicteric, conjunctiva clear. No lid lag. EARS, NOSE, THROAT: Ears normal, nares patent, oropharynx clear without exudates. Moist mucous membranes. NECK: Normal range of motion, supple without lymphadenopathy, JVD, or masses. LUNGS: Breath sounds equal, clear to auscultation bilaterally. No wheezes, and no crackles. No accessory muscle use. HEART: Regular rate and rhythm, normal S1 and S2, 2/6 systolic murmur, rub or gallop. ABDOMEN: Soft, nontender, not distended, normoactive bowel sounds, no guarding, no rebound, no masses. No hepatomegaly or splenomegaly. MUSCULOSKELETAL: Normal range of motion at all joints. No bony deformities or tenderness. No CVA tenderness. UPPER EXTREMITIES: 2+ pulses, warm, well-perfused. No cyanosis. No clubbing. No peripheral edema. LOWER EXTREMITIES: 2+ pulses, warm, well-perfused. No calf tenderness. No peripheral edema. NEUROLOGICAL: Cranial nerves II-XII intact. Normal speech. Normal gait. PSYCHIATRIC: Cooperative. Good eye contact. Appropriate mood and affect. SKIN: Warm, dry, normal turgor, uriticaria noted to billateral lower extremities , abrasion noted to bilateral knees. LABS Laboratory Results - last 24 hr 09/08/16 09/09/16 09/09/16 16:18 07:29 07:29 WBC 10.1 RBC 4.08 Hgb 11.9 Hct 35.5 MCV 87.0 MCH 29.3 MCHC 33.6 RDW 14.5 Plt Count 233 MPV 7.9 Neutrophils % 72.6 Lymphocytes % 14.7 Monocytes % 4.1 Eosinophils % 8.1 H D Basophils % 0.5 Sodium Potassium Chloride Carbon Dioxide Anion Gap BUN Creatinine Random Glucose Calcium Phosphorus Magnesium Creatine Kinase 57 39 Troponin I < 0.03 L 09/09/16 07:29 WBC RBC Hgb Hct MCV MCH MCHC RDW Plt Count MPV Neutrophils % Lymphocytes % Monocytes % Eosinophils % Basophils % Sodium 137 Potassium 3.4 L Chloride 100 Carbon Dioxide 30 H Anion Gap 7 L BUN 20 H Creatinine 1.1 D Random Glucose 102 Calcium 8.3 L Phosphorus 3.6 Magnesium 2.0 Creatine Kinase Troponin I IMAGING ct of head: no acute intracranial pathology, soft tissue swelling chest xray: no acute pathology wrist xray: no fracture no dislocation noted HOSPITAL COURSE: Patient is a 80 y/o female that was admitted from the emergency department for syncopal episode secondary to orthostatic hypotension. Case discussed with patient's PCP (Dr Vides) and block trader (Dr Mancilla). As per Dr Vides and and Dr Mancilla patient had multiple syncopal episodes in the past due to orthostatic hypotension. Last nuclear stress, 09/05/16, per Dr Mancilla was WNL no ischemia noted. ECHO (08/16) LV WNL EF 70%. Halter monitor (08/16) 10 beat runs of afib. Troponin x 3 WNL. Orthostatic vital signs noted, patient is orthostatic. She was placed on 24 hour cardiac monitoring, no runs of ventricular ectopy was noted on cardiac monitoring. Patient did have one 10 beat run of afib that converted to sinus rhythm. Midorine home dose 2.5mg bid ( first dose in AM then 2nd dose at 5pm) was continued throughout admission. patient was placed on fall precautions. Cardiology, Dr Mancilla was consulted. Patient was noted to be hypertensive upon arrival. Trial norvasc 5mg po x 1 was given in the emergency department. Blood pressure remained well controlled throughout admission. Patient has a past medical history of dementia and aricept was continued. Celexa was continued throughout admission. She was noted to have allergic uriticaria likely secondary to digoxin. Patient was evaluated at [facility] emergency department last week and was started on prednisone, which was continued throughout this admission. Atarax was discontinued due to patient's history of syncopal episodes. PLAN * discharge back to [facility] living * continue all medications as prescribed * must use compression stocks daily * frequent amounts of fluid throughout the day * strict follow up with your block trader, Dr Mancilla within 1 week to plan for ILR * strict follow up PCP, Dr Vides within 1 week * return precautions reviewed, ie chest pain, headache, blurred vision, or shortness of breath. Date of Admission:09/08/16 Date of Discharge: 09/09/16 Minutes to complete discharge: 45 Discharge Summary Reason For Visit: SYNCOPE, HEAD CONTUSION Current Active Problems Head contusion (Acute) Syncope (Acute) Condition: Stable - Instructions Diet, Activity, Other Instructions: resume regular low sodium diet continue all medications as prescribed continue taking midiodrone at 0900 and at 12pm please follow up with your primary care physician within 1 week if chest pain, shortness of breath, or headache develops please return to the emergency department Referrals: Treasure Mancilla MD [Staff Physician] - Ted Vides MD [Primary Care Provider] - 1 Week Disposition: HOME - Home Medications Comprehensive Discharge Medication List: Ambulatory Orders RX: Atorvastatin Ca [Lipitor] 40 mg PO DAILY 07/18/16 RX: Bupropion HCl [Wellbutrin Xl -] 150 mg PO DAILY 07/18/16 RX: Cholecalciferol (Vitamin D3) [Vitamin D3] 2,000 unit PO DAILY 07/18/16 RX: Citalopram Hydrobromide [Citalopram HBr] 40 mg PO DAILY 07/18/16 RX: Donepezil HCl 23 mg PO DAILY 07/18/16 RX: Fludrocortisone Acetate [Florinef -] 0.1 mg PO BID 07/18/16 RX: Memantine HCl [Namenda Xr] 28 mg PO DAILY 07/18/16 Aspirin [ASA -] 81 mg PO DAILY 08/19/16 Famotidine [Pepcid] 20 mg PO BID 09/08/16 Prednisone [Deltasone -] 20 mg PO ASDIR 09/08/16 RX: Hydroxyzine HCl 95 mg PO TID 09/08/16 RX: Midodrine HCl 2.5 mg PO DAILY 09/08/16 This patient is new to me today: No Emergency Visit: Yes ED Registration Date: 09/08/16 Care time: The patient presented to the Emergency Department on the above date and was hospitalized for further evaluation of their emergent condition. Critical Care patient: No - Discharge Referral Referred to [facility] Med [facility].C.: No
[2016-09-09 09:15] LABS: TROPONIN I (DFP) < 0.03 ng/ml (0.03-0.50)
[2016-09-09] MEDS ORDERED: POTASSIUM CHLORIDE TABS 20 MEQ TABLET.ER (FP) PO ONE (10:00)
[2016-09-09] MEDS ORDERED: MIDODRINE HCL 2.5 MG TABLET PO SCH (10:00)
[2016-09-09] MEDS ORDERED: ASPIRIN 81 MG CHEWABLE TABLETS PO SCH (10:00)
[2016-09-09] MEDS ORDERED: CITALOPRAM HYDROBROMIDE 20 MG TABLET (FP) PO SCH (10:00)
[2016-09-09] MEDS ORDERED: CHOLECALCIFEROL (VITAMIN D3) 1,000 UNIT TABLET (FP) PO SCH (10:00)
[2016-09-09] MEDS ORDERED: predniSONE 20 MG TABLET (UD) PO SCH (10:00)
[2016-09-09] MEDS ORDERED: MEMANTINE HCL 10 MG TABLET (FP) PO SCH (10:00)
[2016-09-09] MEDS ORDERED: PATIENT'S OWN MEDICATION (NON-FORMULARY) (Donepezil Hcl [Donepezil Hcl] 23 MG) PO SCH (10:00)
[2016-09-09] MEDS ORDERED: PATIENT'S OWN MEDICATION (NON-FORMULARY) (Memantine Hcl [Namenda Xr] 28 MG) PO SCH (10:00)
[2016-09-09] MEDS ORDERED: PT OWN MED DRAWER 7, Y5N ONE (10:09)
[2016-09-09] MEDS: FAMOTIDINE 20 MG TABLET PO SCH (10:15)
[2016-09-09] MEDS: MIDODRINE HCL 2.5 MG TABLET PO SCH (10:15)
[2016-09-09] MEDS: FLUDROCORTISONE ACETATE 0.1 MG TABLET (FP) PO SCH (10:16)
[2016-09-09 14:20] VITALS: BP 146/62; PULSE 65; TEMP 98.3
--- NOTE | 2016-09-09 17:14 | EKG ---
Test Reason : Blood Pressure : / mmHG Vent. Rate : 058 BPM Atrial Rate : 058 BPM P-R Int : 158 ms QRS Dur : 094 ms QT Int : 496 ms P-R-T Axes : 071 042 023 degrees QTc Int : 486 ms BASELINE ARTIFACTS SINUS BRADYCARDIA NONSPECIFIC ST AND T WAVE ABNORMALITY PROLONGED QT ABNORMAL ECG WHEN COMPARED WITH ECG OF 19-AUG-2016 14:39, DIFFUSE ST ABNORMALITIES AND PROLONGATION OF QT INTERVAL CORELATE CLINICAL Confirmed by VANDA EGAN MD ([id number] on 09/09/2016 5:13:32 PM Referred By: STEPHANIE GROSSMAN Confirmed By:VANDA EGAN MD
[2016-09-09] MEDS ORDERED: DONEPEZIL HCL 10 MG TABLET (FP) PO SCH (22:00)
[2016-09-09] MEDS ORDERED: ATORVASTATIN CA 40 MG TABLET (FP) PO SCH (22:00)
== END 2016-09-09 16:30 ==
LOC: FER 09:34 → FM/S 13:44
PROVIDERS: ADMIT Internal Medicine; ATTEND Nurse Practitioner Family
DX: R55 Syncope and collapse (principal); I48.0 Paroxysmal atrial fibrillation; E78.5 Hyperlipidemia, unspecified; I95.1 Orthostatic hypotension; Z79.82 Long term (current) use of aspirin; L50.0 Allergic urticaria; G30.9 Alzheimer's disease, unspecified; F02.80 Dementia in other diseases classified elsewhere, unspecified severity, without behavioral disturbance, psychotic disturbance, mood disturbance, and anxiety; Z91.81 History of falling; S00.93XA Contusion of unspecified part of head, initial encounter; W18.39XA Other fall on same level, initial encounter; Y93.89 Activity, other specified; Y92.9 Unspecified place or not applicable
CPT/HCPCS: 36415; 70450-TC; 71020-TC; 73110-TC-LT; 80048; 80053; 81003; 82550; 83735; 84100; 84484; 85025; 85610; 85730; 93005; 93880-TC; 97116-GP; 97161-GP; 99285-25; G0378

== ENCOUNTER 2016-09-20 19:19 | Emergency (ER) | payer OTHER ==
--- NOTE | 2016-09-20 19:22 | PDOC ---
History of Present Illness - General History Source: Patient Exam Limitations: No Limitations <JeremiahtimnandiniMaddison - Last Filed: 09/20/16 20:16> - General History Source: Patient Exam Limitations: No Limitations <Thania Medina I - Last Filed: 09/20/16 20:25> - General Chief Complaint: Syncope/Near Syncope Stated Complaint: NEAR SYNCOPE Time Seen by Provider: 09/20/16 19:21 - History of Present Illness Initial Comments: 09/20/16 19:46 Patient is a 80 year old female with a PMH of paroxysmal afib (no AC), orthostatic hypotension (adrenal insufficiency), hyperlipidemia, depression, and senile dementia, frequent falls and syncopal episodes who presents via EMS s /p near syncopal episode. As per EMS the patient had an episode of low BP, but did not fall or syncopize. Patient was seen here 10 days ago s/p syncopal episode. Patient did not sustain any head trauma. She denies any new pain or trauma s/p fall. PAST MEDICAL HISTORY: see HPI. PAST SURGICAL HISTORY: tonsilectoy FAMILY HISTORY: no pertinent history SOCIAL HISTORY: Pt lives at [facility]. Does not smoke, drink, or use recreational drugs MEDICATIONS: reviewed ALLERGIES: As per nursing notes General: No fevers or chills, no weakness, no weight loss HEENT: No change in vision. No sore throat, No ear pain CardioVascular: No chest pain or shortness of breath Respiratory:No cough, or wheezing. Gastrointestinal: no nausea, vomiting, diarrhea or constipation, No rectal bleeding Genitourinary: No dysuria, hematuria, or frequency Musculoskeletal: No joint or muscle pain or swelling Neurologic: No headache, vertigo, dizziness or loss of consciousness Psychiatric: nor depression Skin: No rashes or easy bruising Endocrine: no increased thirst or abnormal weight change Allergic: no skin or latex allergy All other systems reviewed and normal General: Well-nourished well-developed individual, no acute distress HEENT: Throat: Normal, tonsils normal, no erythema or exudate Neck: Supple, no meningeal signs, no lymphadenopathy Eyes:Pupils equal reactive and round, extraocular motion intact Chest: Nontender to palpation Cardiac: S1-S2 normal, regular rate and rhythm, no murmurs rubs or gallops Respiratory: Lungs clear to auscultation bilateral Abdomen: Soft, nondistended, normal bowel sounds, nontender to palpation diffusely Extremities: (+)Bilateral contusions and abrasions that apear to be old. Warm, dry, no cyanosis, clubbing, or edema Skin: No rashes Neuro: Alert and oriented x3, nonfocal exam, grossly intact. Psych: Normal mood and affect (Maddison Meng) 09/20/16 20:23 A portion of this note was documented by scribe services under my direction. I have reviewed the details of the note, within reason, and agree with the documentation. The case summary and management plan written by me. Assessment and plan: This is a 81 -year-old female with frequent syncopal events. Patient also has a history of dementia. Patient was brought in by EMS. Patient is a very poor historian and as per EMS the assisted-living facility where patient lives was also unable to give a clear picture of what exactly happened. Patient said she felt like her blood pressure was low but did not pass out. Patient was here approximately 10 days ago for a syncopal event and has had multiple syncopal events as per her daughter. Patient denied passing out denied any injury but also stated that she was unable to recall what happened. Patient had no injuries that appeared to be new or acute on exam. Patient was otherwise without complaints. Patient had a workup including an EKG which showed normal sinus rhythm no acute ST-T wave changes. Patient's lab work was unremarkable with no acute abnormalities that would have contributed to her questionable near syncope. Patient discharged back to her assisted-living facility. (Thania Medina I) Past History <Maddison Meng - Last Filed: 09/20/16 20:16> - Past Medical History Cardiac Disorders: Yes (HYPOTENSION, AFIB) Dementia: Yes (SENILE DEGENERATION) Hypercholesterolemia: Yes Psychiatric Problems: Yes (DEPRESSION) - Psycho/Social/Smoking Cessation Hx Anxiety: Yes (DEPRESSION) Suicidal Ideation: No (UNABLE TO ASSESS PT HAS DEMENTIA) Smoking History: Never smoked Have you smoked in the past 12 months: No Hx Alcohol Use: No Drug/Substance Use Hx: No Substance Use Type: None Hx Substance Use Treatment: No <Thania Medina I - Last Filed: 09/20/16 20:25> - Past Medical History Allergies/Adverse Reactions: Allergies Allergy/AdvReac Type Severity Reaction Status Date / Time No Known Allergies Allergy Verified 09/08/16 09:36 Home Medications: Ambulatory Orders Atorvastatin Ca [Lipitor] 40 mg PO DAILY 07/18/16 Bupropion HCl [Wellbutrin Xl -] 150 mg PO DAILY 07/18/16 Cholecalciferol (Vitamin D3) [Vitamin D3] 2,000 unit PO DAILY 07/18/16 Citalopram Hydrobromide [Citalopram HBr] 40 mg PO DAILY 07/18/16 Donepezil HCl 23 mg PO DAILY 07/18/16 Fludrocortisone Acetate [Florinef -] 0.1 mg PO BID 07/18/16 Memantine HCl [Namenda Xr] 28 mg PO DAILY 07/18/16 Aspirin [ASA -] 81 mg PO DAILY 08/19/16 Famotidine [Pepcid] 20 mg PO BID 09/08/16 Midodrine HCl 2.5 mg PO DAILY 09/08/16 Prednisone [Deltasone -] 20 mg PO ASDIR 09/08/16 Acetaminophen [Tylenol .Regular Strength -] 650 mg PO Q4H PRN #0 tablet Midodrine HCl [Proamatine -] 2.5 mg PO BID@1000,1700 tablet 09/09/16 - Vital Signs Last Vital Signs Temp Pulse Resp BP Pulse Ox 97.5 F L 91 H 16 140/78 96 09/20/16 19:20 09/20/16 19:20 09/20/16 19:20 09/20/16 19:20 09/20/16 19:20 ED Treatment Course - LABORATORY CBC & Chemistry Diagram: 09/20/16 19:30 09/20/16 19:30 <Maddison Meng - Last Filed: 09/20/16 20:16> - LABORATORY CBC & Chemistry Diagram: 09/20/16 19:30 09/20/16 19:30 <Thania Medina I - Last Filed: 09/20/16 20:25> - ADDITIONAL ORDERS Additional order review: Laboratory Results 09/20/16 09/20/16 19:30 19:30 Sodium 140 Potassium 4.1 D Chloride 106 Carbon Dioxide 24 Anion Gap 10 BUN 30 H D Creatinine 1.1 Creat Clearance w eGFR 47.91 Random Glucose 134 H D Calcium 9.5 Total Bilirubin 0.4 D AST 20 ALT 15 D Alkaline Phosphatase 140 H Creatine Kinase 38 Troponin I < 0.03 L Total Protein 6.1 L Albumin 3.7 09/20/16 19:30 RBC 4.35 MCV 86.8 MCHC 34.7 RDW 15.4 MPV 7.7 Neutrophils % 73.3 Lymphocytes % 19.1 D Monocytes % 4.9 Eosinophils % 0.6 D Basophils % 2.1 H D *DC/Admit/Observation/Transfer <Maddison Meng - Last Filed: 09/20/16 20:16> - Discharge Dispostion Admit: No <Thania Medina I - Last Filed: 09/20/16 20:25> Diagnosis at time of Disposition: Near syncope - Discharge Dispostion Disposition: HOME Condition at time of disposition: Stable - Referrals Referrals: Ted Vides MD [Primary Care Provider] - - Patient Instructions Additional Instructions: Return to the emergency department immediately with ANY new, persistent or worsening symptoms. Continue any medications as previously prescribed by your physician. You should follow up with your primary doctor as soon as possible regarding today's emergency department visit. . Please make sure your doctor reviews the results of your emergency evaluation. Thank you for coming to the Emergency Department today for your care. It was a pleasure to see you today. Please note that your evaluation is INCOMPLETE until you follow-up with your doctor. - Attestations Scribe Attestion: 09/20/16 19:37 Documentation prepared by WALT King, acting as medical orderly for Thania Medina MD. (Maddison Meng)
[2016-09-20 19:25] VITALS: BP 140/78; PULSE 91; TEMP 97.5; BMI 25.0
[2016-09-20 19:51] LABS: BASOPHIL 2.1 % (0-2.0); EOSINOPHIL 0.6 % (0-4.5); MCH 30.1 pg (25.7-33.7); MCHC 34.7 g/dl (32.0-36.0); MEAN CELL VOLUME 86.8 fl (80-96); MEAN PLT VOLUME 7.7 fl (7.5-11.1); NEUTROPHILS 73.3 % (42.8-82.8); PLATELET COUNT 324 K/MM3 (134-434); RDW 15.4 % (11.6-15.6); WHITE BLOOD COUNT 10.1 K/mm3 (4.0-10.8)
[2016-09-20 19:59] LABS: ALBUMIN 3.7 g/dl (3.5-5.0); ALK PHOS 140 U/L (32-92); ANION GAP 10 (8-16); BILIRUBIN,TOTAL 0.4 mg/dl (0.2-1.0); CALCIUM 9.5 mg/dl (8.4-10.2); CO2 24 mmol/L (22-28); CPK(DFH) 38 IU/L (26-140); CREATININE 1.1 mg/dl (0.6-1.3); GLUCOSE,RANDOM 134 mg/dl (74-106); SGOT/AST 20 U/L (10-42); SGPT/ALT 15 U/L (10-40); TOT PROT 6.1 g/dl (6.4-8.3)
[2016-09-20 20:15] LABS: TROPONIN I (DFP) < 0.03 ng/ml (0.03-0.50)
--- NOTE | 2016-09-21 13:00 | EKG ---
Test Reason : Blood Pressure : / mmHG Vent. Rate : 087 BPM Atrial Rate : 087 BPM P-R Int : 148 ms QRS Dur : 090 ms QT Int : 400 ms P-R-T Axes : 063 041 054 degrees QTc Int : 482 ms SINUS RHYTHM PROLONGED QT ABNORMAL ECG WHEN COMPARED WITH ECG OF 08-SEP-2016 09:50, VENT. RATE HAS INCREASED BY 29 BPM NONSPECIFIC T WAVE ABNORMALITY NO LONGER EVIDENT IN INFERIOR LEADS Confirmed by CUCO GARCES MD ([id number]) on 09/21/2016 1:00:11 PM Referred By: VONDA EDOUARD Confirmed By:CUCO GARCES MD
== END 2016-09-20 20:20 | disposition home or self-care (01) ==
LOC: FER 19:19
DX: I95.9 Hypotension, unspecified (principal); R55 Syncope and collapse; Z91.81 History of falling; I48.0 Paroxysmal atrial fibrillation; F03.91 Unspecified dementia, unspecified severity, with behavioral disturbance
CPT/HCPCS: 36415; 80053; 82550; 84484; 85025; 93005; 99283-25

== ENCOUNTER 2017-03-26 17:24 | Emergency (ER) | payer OTHER ==
--- NOTE | 2017-03-26 17:28 | PDOC ---
History of Present Illness <Nicki White - Last Filed: 03/26/17 18:36> <Joseph Bedolla - Last Filed: 03/26/17 18:48> - General Chief Complaint: Syncope/Near Syncope Time Seen by Provider: 03/26/17 17:27 - History of Present Illness Initial Comments: 03/26/17 17:59 The patient is a 81 year old female, with a PMHx of paroxysmal afib (no AC), orthostatic hypotension (adrenal insufficiency), hyperlipidemia, depression, senile dementia, falls, syncopal episodes, who was BIBA from [facility] for syncope. EMS states patient was was seeing her doctor at the assisted living and as they were walking her she syncopized. Daughter states patient did not lose consciousness completely. Patient was seen last August in the ER for same complaint of syncope.As per patients daughter, patient was at the [facility] and she was heading to the doctors office for a lump in her breast when she fainted. Patient has no complaints at the moment. Patient denies hitting her head. She denies recent fevers, chills, headache or dizziness. She denies recent nausea, vomit, diarrhea or constipation. She denies recent dysuria, frequency, urgency or hematuria. She denies recent chest pain or shortness of breath. Allergies: NKA Past surgical history: loop recorder Social history: Nonsmoker. Denies EtOH use and recreational drug use. Primary Care Physician: Ted Vides Grinder Tender: Dr. Mancilla (Nicki White) Past History <Nicki White - Last Filed: 03/26/17 18:36> - Past Medical History Cardiac Disorders: Yes (HYPOTENSION, AFIB) Dementia: Yes (SENILE DEGENERATION) Hypercholesterolemia: Yes Psychiatric Problems: Yes (DEPRESSION) - Suicide/Smoking/Psychosocial Hx Smoking History: Never smoked Have you smoked in the past 12 months: No Hx Alcohol Use: No Drug/Substance Use Hx: No Substance Use Type: None Hx Substance Use Treatment: No <Joseph Bedolla - Last Filed: 03/26/17 18:48> - Past Medical History Allergies/Adverse Reactions: Allergies Allergy/AdvReac Type Severity Reaction Status Date / Time digoxin Allergy Verified 03/26/17 17:25 Home Medications: Ambulatory Orders Atorvastatin Ca [Lipitor] 40 mg PO DAILY 07/18/16 Cholecalciferol (Vitamin D3) [Vitamin D3] 2,000 unit PO DAILY 07/18/16 Citalopram Hydrobromide [Citalopram HBr] 20 mg PO DAILY 07/18/16 Donepezil HCl 23 mg PO DAILY 07/18/16 Fludrocortisone Acetate [Florinef -] 0.1 mg PO BID 07/18/16 Memantine HCl [Namenda Xr] 28 mg PO DAILY 07/18/16 Aspirin [ASA -] 81 mg PO DAILY 08/19/16 Prednisone [Deltasone -] 20 mg PO ASDIR 09/08/16 Acetaminophen [Tylenol .Regular Strength -] 650 mg PO Q4H PRN #0 tablet Midodrine HCl [Proamatine -] 2.5 mg PO BID@1000,1700 tablet 09/09/16 Bupropion HCl [Bupropion HCl Sr] 150 mg PO DAILY 09/21/16 Omeprazole 20 mg PO BID 09/21/16 Review of Systems <Nicki White - Last Filed: 03/26/17 18:36> <Joseph Bedolla - Last Filed: 03/26/17 18:48> - Review of Systems Comments:: 03/26/17 17:59 CONSTITUTIONAL: Absent: fever, no chills, no fatigue EYES: Absent: visual changes ENT: Absent: ear pain, no sore throat CARDIOVASCULAR: Present: syncope Absent: chest pain, no palpitations RESPIRATORY: Absent: cough, no SOB GI: Absent: abdominal pain, no nausea, no vomiting, no constipation, no diarrhea GENITOURINARY: Absent: dysuria, no frequency, no hematuria MUSKULOSKELETAL: Absent: back pain, no arthralgia, no myalgia SKIN: Absent: rash NEURO: Absent: headache (Nicki White) *Physical Exam <Nicki White - Last Filed: 03/26/17 18:36> <Joseph Bedolla - Last Filed: 03/26/17 18:48> - Vital Signs Last Vital Signs Temp Pulse Resp BP Pulse Ox 98.4 F 85 18 156/85 100 03/26/17 17:26 03/26/17 17:26 03/26/17 17:26 03/26/17 17:26 03/26/17 17:26 - Physical Exam Comments: 03/26/17 18:00 GENERAL: Well-appearing, well-nourished. No apparent distress. HEENT: Normocephalic, atraumatic. PERRL, EOM intact. CARDIOVASCULAR: Normal S1, S2. Regular rate and rhythm. PULMONARY: Clear to auscultation bilaterally. ABDOMEN: Soft, non-distended, non-tender. EXTREMITIES: Normal ROM in all four extremities. No gross deformities. SKIN: Warm, dry. No rash NEUROLOGICAL: No focal neurological deficits. (Nicki White) Heart Score/ECG Review <Nicki White - Last Filed: 03/26/17 18:36> <Joseph Bedolla - Last Filed: 03/26/17 18:48> - ECG Intrepretation Comment:: 03/26/17 17:44 Normal sinus rhythm Possible left atrial enlargment Nonspecific ST abnormality Vent rate 83 bpm No stemi No ST-T wave changes (Nicki White) ED Treatment Course - LABORATORY CBC & Chemistry Diagram: 03/26/17 18:20 03/26/17 18:20 <Nicki White - Last Filed: 03/26/17 18:36> - LABORATORY CBC & Chemistry Diagram: 03/26/17 18:20 03/26/17 18:20 <Joseph Bedolla - Last Filed: 03/26/17 18:48> - ADDITIONAL ORDERS Additional order review: Laboratory Results 03/26/17 18:20 Sodium 140 Potassium 3.7 Chloride 107 Carbon Dioxide 30 H D Anion Gap 3 L BUN 22 H D Creatinine 0.9 Creat Clearance w eGFR > 60 Random Glucose 98 D Calcium 8.7 Total Bilirubin 0.4 AST 16 ALT 15 Alkaline Phosphatase 157 H Total Protein 5.9 L Albumin 3.5 03/26/17 18:20 RBC 4.00 MCV 88.2 MCHC 32.2 RDW 14.3 MPV 7.9 Neutrophils % 63.0 Lymphocytes % 25.6 Monocytes % 7.5 Eosinophils % 3.0 Basophils % 0.9 - RADIOLOGY Radiology Studies Ordered: Category Date Time Status CHEST X-RAY PORTABLE* [RAD] Stat Radiology 03/26/17 17:42 Ordered Progress Note <Nicki White - Last Filed: 03/26/17 18:36> <Joseph Bedolla - Last Filed: 03/26/17 18:48> - Progress Note Progress Note: Pt has a hx of syncope, sees Grinder Tender. Awaiting lab work and CXR Pt feels fine now Will need to call Grinder Tender with possible admission. Case to be endorsed to Dr. Gutiérrez, with further disposition. (Joseph Bedolla) *DC/Admit/Observation/Transfer <Nicki White - Last Filed: 03/26/17 18:36> <Joseph Bedolla - Last Filed: 03/26/17 18:48> Diagnosis at time of Disposition: Near syncope Diagnosis at time of Disposition: (Ruled Out): Head injury - Discharge Dispostion Condition at time of disposition: Stable - Referrals Referrals: Ted Vides MD [Primary Care Provider] - - Patient Instructions - Post Discharge Activity - Attestations Scribe Attestion: 03/26/17 18:02 Documentation prepared by Nicki White, acting as medical voucher clerk for Joseph Bedolla MD. (Nicki White)
[2017-03-26 17:40] VITALS: BP 156/85; PULSE 85; TEMP 98.4; BMI 25.0
[2017-03-26 18:34] LABS: BASO % 0.9 % (0-2.0); HEMATOCRIT 35.3 % (32.4-45.2); HEMOGLOBIN 11.4 GM/dl (10.7-15.3); LYMPH % 25.6 % (8-40); MCH 28.4 pg (25.7-33.7); MCHC 32.2 g/dl (32.0-36.0); MEAN CELL VOLUME 88.2 fl (80-96); MEAN PLT VOLUME 7.9 fl (7.5-11.1); MONO % 7.5 % (3.8-10.2); PLATELET COUNT 235 K/MM3 (134-434); RDW 14.3 % (11.6-15.6); WHITE BLOOD COUNT 4.6 K/mm3 (4.0-10.8)
[2017-03-26 18:44] LABS: ALBUMIN 3.5 g/dl (3.5-5.0); ALK PHOS 157 U/L (32-92); ANION GAP 3 (8-16); BILIRUBIN,TOTAL 0.4 mg/dl (0.2-1.0); BLOOD UREA NITROGEN 22 mg/dl (7-18); CALCIUM 8.7 mg/dl (8.4-10.2); CHLORIDE 107 mmol/L (98-107); CO2 30 mmol/L (22-28); CREATININE 0.9 mg/dl (0.6-1.3); GLUCOSE,RANDOM 98 mg/dl (74-106); POTASSIUM 3.7 mmol/L (3.5-5.1); SGOT/AST 16 U/L (10-42); SGPT/ALT 15 U/L (10-40); SODIUM 140 mmol/L (136-145); TOT PROT 5.9 g/dl (6.4-8.3)
--- NOTE | 2017-03-27 15:24 | EKG ---
Test Reason : Blood Pressure : / mmHG Vent. Rate : 083 BPM Atrial Rate : 083 BPM P-R Int : 172 ms QRS Dur : 088 ms QT Int : 408 ms P-R-T Axes : 067 026 044 degrees QTc Int : 479 ms NORMAL SINUS RHYTHM POSSIBLE LEFT ATRIAL ENLARGEMENT NONSPECIFIC ST ABNORMALITY WHEN COMPARED WITH ECG OF 20-SEP-2016 19:33, NO SIGNIFICANT CHANGE WAS FOUND Confirmed by MD KAY, WILLIS ([id number]) on 03/27/2017 3:23:58 PM Referred By: DR BLEDSOE Confirmed By:WILLIS VILLANUEVA MD
== END 2017-03-26 19:23 | disposition home or self-care (01) ==
LOC: FER 17:24
DX: R55 Syncope and collapse (principal); S09.90XA Unspecified injury of head, initial encounter; I48.91 Unspecified atrial fibrillation; I95.9 Hypotension, unspecified; F32.9 Major depressive disorder, single episode, unspecified; E78.00 Pure hypercholesterolemia, unspecified; F03.90 Unspecified dementia, unspecified severity, without behavioral disturbance, psychotic disturbance, mood disturbance, and anxiety; W18.39XA Other fall on same level, initial encounter; Y93.89 Activity, other specified; Y92.129 Unspecified place in nursing home as the place of occurrence of the external cause
CPT/HCPCS: 36415; 71045-TC; 80053; 84484; 85025; 93005; 99282-25

== ENCOUNTER 2017-12-02 13:54 | Emergency (ER) | payer OTHER ==
[2017-12-02 14:22] VITALS: TEMP 98.6; BMI 26.3
--- NOTE | 2017-12-02 14:22 | PDOC ---
History of Present Illness - General History Source: EMS, Friend, Old Records <Cirilo Whyte - Last Filed: 12/02/17 16:31> <Andrew العراقي - Last Filed: 12/02/17 17:30> - General Chief Complaint: Syncope/Near Syncope Stated Complaint: FALL Time Seen by Provider: 12/02/17 13:57 - History of Present Illness Initial Comments: 12/02/17 15:00 The patient is a 82 year old female, with a significant past medical history of paroxysmal afib (no AC), orthostatic hypotension (adrenal insufficiency), hyperlipidemia, depression, senile dementia, falls, syncopal episodes, who presents to the emergency department from [facility] via EMS s/p syncope. As per gentleman she was walking with at the time of the fall, they were walking outdoors when she portrayed a blank stare and syncopized. The gentlemen notes he attempted to catch her, however, they both fell. As per EMS, she hit her head. While in the ER, the patient denies any symptoms. She notes previous episodes of similar symptoms last was March 2017. History was obtained via EMR and acquaintance she was with because she is a poor historian due to her clinical condition. Allergies: Digoxin. Past surgical history: tonsillectomy. loop recorder. Social history: Nonsmoker. Denies EtOH use and recreational drug use. Familial History: Noncontributory, including early coronary artery disease, metabolic diseases including diabetes, TIME CLERK disease, and cancer. Primary Care Physician: Dr. Ted Vides Supervisor Insecticide: Dr. Mancilla (Cirilo Whyte) Past History <Cirilo Whyte - Last Filed: 12/02/17 16:31> - Past Medical History Cardiac Disorders: Yes (HYPOTENSION, AFIB) COPD: No Dementia: Yes (SENILE DEGENERATION) Hypercholesterolemia: Yes Psychiatric Problems: Yes (DEPRESSION) - Suicide/Smoking/Psychosocial Hx Smoking History: Never smoked Have you smoked in the past 12 months: No Hx Alcohol Use: No Drug/Substance Use Hx: No Substance Use Type: None Hx Substance Use Treatment: No <Andrew العراقي - Last Filed: 12/02/17 17:30> - Past Medical History Allergies/Adverse Reactions: Allergies Allergy/AdvReac Type Severity Reaction Status Date / Time digoxin Allergy Verified 12/02/17 14:13 Home Medications: Ambulatory Orders Atorvastatin Ca [Lipitor] 40 mg PO DAILY 07/18/16 Cholecalciferol (Vitamin D3) [Vitamin D3] 2,000 unit PO DAILY 07/18/16 Citalopram Hydrobromide [Citalopram HBr] 20 mg PO DAILY 07/18/16 Fludrocortisone Acetate [Florinef -] 0.1 mg PO BID 07/18/16 Aspirin [ASA -] 81 mg PO DAILY 08/19/16 Bupropion HCl [Bupropion HCl Sr] 150 mg PO DAILY 09/21/16 Midodrine HCl [Proamatine -] 2.5 mg PO BID 03/26/17 Acetaminophen [Tylenol Extra Strength] 500 mg PO PRN PRN 12/02/17 Dronedarone HCl [Multaq] 400 mg PO BID 12/02/17 Tamoxifen Citrate 20 mg PO DAILY 12/02/17 Review of Systems - Review of Systems Able to Perform ROS?: Yes All Other Systems: Reviewed and Negative <Cirilo Whyte - Last Filed: 12/02/17 16:31> <Andrew العراقي - Last Filed: 12/02/17 17:30> - Review of Systems Comments:: 12/02/17 15:00 CONSTITUTIONAL: Absent: fever, no chills, no fatigue EYES: Absent: visual changes ENT: Absent: ear pain, no sore throat CARDIOVASCULAR: Absent: chest pain, no palpitations RESPIRATORY: Absent: cough, no SOB GI: Absent: abdominal pain, no nausea, no vomiting, no constipation, no diarrhea GENITOURINARY: Absent: dysuria, no frequency, no hematuria MUSKULOSKELETAL: Absent: back pain, no arthralgia, no myalgia SKIN: Absent: rash NEURO: Present: Syncope. Absent: headache (Cirilo Whyte) *Physical Exam <Cirilo Whyte - Last Filed: 12/02/17 16:31> <Andrew العراقي - Last Filed: 12/02/17 17:30> - Vital Signs Last Vital Signs Temp Pulse Resp BP Pulse Ox 98.6 F 73 18 143/78 95 12/02/17 13:56 12/02/17 15:16 12/02/17 13:56 12/02/17 15:16 12/02/17 13:56 - Physical Exam Comments: 12/02/17 16:31 GENERAL: Mild confusions due to chronic dementia. Cheerful upon exam. Well developed, well nourished. Awake and alert. No acute distress. HEENT: Optic fundi clear with good central venous dismargins. Clear fundi. No bruises. Normocephalic, atraumatic. PERRLA, EOMI. No conjunctival pallor. Sclera are non- icteric. Moist mucous membranes. Oropharynx is clear. NECK: No tenderness to c-spine. Supple. Full ROM. No JVD. Carotid pulses 2+ and symmetric, without bruits. No thyromegaly. No lymphadenopathy. +CARDIOVASCULAR: Significant orthostatic changes in blood pressure and pulses. No chest tenderness or rib cage deformity. Regular rate and rhythm. No murmurs, rubs, or gallops. Distal pulses are 2+ and symmetric. PULMONARY: No evidence of respiratory distress. Lungs clear to auscultation bilaterally. No wheezing, rales or rhonchi. ABDOMINAL: Soft. Non-tender. Non-distended. No rebound or guarding. No organomegaly. Normoactive bowel sounds. MUSCULOSKELETAL Normal range of motion at all joints. No bony deformities or tenderness. No CVA tenderness. EXTREMITIES: No cyanosis. No clubbing. No edema. No calf tenderness. SKIN: Warm and dry. Normal capillary refill. No rashes. No jaundice. NEUROLOGICAL: Alert, awake, appropriate. Cranial nerves 2-12 intact. No deficits to light touch and temperature in face, upper extremities and lower extremities. No motor deficits in the in face, upper extremities and lower extremities. Normoreflexic in the upper and lower extremities. Normal speech. Toes are down- going bilaterally. PSYCHIATRIC: Cooperative. Good eye contact. Appropriate mood and affect. (Cirilo Whyte) ED Treatment Course - LABORATORY CBC & Chemistry Diagram: 12/02/17 14:56 12/02/17 14:56 <Cirilo Whyte - Last Filed: 12/02/17 16:31> - LABORATORY CBC & Chemistry Diagram: 12/02/17 14:56 12/02/17 14:56 <Andrew العراقي - Last Filed: 12/02/17 17:30> - ADDITIONAL ORDERS Additional order review: Laboratory Results 12/02/17 12/02/17 14:56 14:56 Sodium 139 Potassium 3.4 L Chloride 104 Carbon Dioxide 27 Anion Gap 8 BUN 18 Creatinine 1.3 Creat Clearance w eGFR 39.41 Random Glucose 127 H D Calcium 8.2 L Total Bilirubin 0.3 AST 19 ALT 11 D Alkaline Phosphatase 102 H Creatine Kinase 54 Troponin I < 0.03 Total Protein 6.0 L Albumin 3.4 L 12/02/17 14:56 RBC 3.82 MCV 88.4 MCHC 32.6 RDW 14.1 MPV 7.2 L Neutrophils % 74.3 Lymphocytes % 16.9 Monocytes % 6.2 Eosinophils % 2.1 Basophils % 0.5 - Medications Given in the ED: ED Medications Discontinued Medications Generic Name Dose Route Start Last Admin Trade Name Freq PRN Reason Stop Dose Admin Sodium Chloride 1,000 mls @ 1,000 mls/hr 12/02/17 14:59 12/02/17 15:14 Normal Saline - IV 12/02/17 15:58 1,000 mls/hr ASDIR STA Administration Medical Decision Making <Cirilo Whyte - Last Filed: 12/02/17 16:31> <Andrew العراقي - Last Filed: 12/02/17 17:30> - Medical Decision Making 12/02/17 15:32 Patient with numerous prior syncopal episodes, complete evaluation by oxygen equipment aide Dr. Mancilla, attributed to vascular instability and/or orthostatic hypotension. Physical exam is now normal. There is no evidence of trauma to the head neck trunk or extremities. Baseline dementia but otherwise the patient is awake cheerful and cooperative. EKG is unchanged from prior, normal sinus rhythm. Labs including CBC, chemistries, cardiac enzymes, without significant abnormalities. Examination and the lying and standing position showed significant orthostatic changes with standing. IV fluids were administered. Thereafter the patient was improved, ambulating normally, without lightheadedness dizziness or feeling faint. Discharge with her daughter to follow-up with her oxygen equipment aide, encouraged to drink more fluids and arise slowly when necessary. 12/02/17 15:35 12/02/17 17:29 (Andrew العراقي) *DC/Admit/Observation/Transfer <Cirilo Whyte - Last Filed: 12/02/17 16:31> - Discharge Dispostion Decision to Admit order: No <Andrew العراقي - Last Filed: 12/02/17 17:30> Diagnosis at time of Disposition: Syncope Qualifiers: Syncope type: unspecified Qualified Code(s): R55 - Syncope and collapse - Discharge Dispostion Disposition: HOME Condition at time of disposition: Improved - Patient Instructions Printed Discharge Instructions: DI for Syncope in Adults (Fainting), DI for Orthostatic Hypotension Additional Instructions: Increase fluids and salt. Medication as directed. See oxygen equipment aide for follow- up. - Attestations Scribe Attestion: 12/02/17 15:00 Documentation prepared by Cirilo Whyte, acting as medical facilities section director for Andrew Clark MD. (Cirilo Whyte)
[2017-12-02] MEDS ORDERED: SODIUM CHLORIDE 1,000 ML IV STA (14:59)
[2017-12-02 15:02] LABS: BASO % 0.5 % (0-2.0); EOS % 2.1 % (0-4.5); HEMATOCRIT 33.7 % (32.4-45.2); LYMPH % 16.9 % (8-40); MCH 28.8 pg (25.7-33.7); MCHC 32.6 g/dl (32.0-36.0); MEAN CELL VOLUME 88.4 fl (80-96); MEAN PLT VOLUME 7.2 fl (7.5-11.1); MONO % 6.2 % (3.8-10.2); NEUT % 74.3 % (42.8-82.8); PLATELET COUNT 247 K/MM3 (134-434); RBC 3.82 M/mm3 (3.60-5.2); RDW 14.1 % (11.6-15.6); WHITE BLOOD COUNT 5.1 K/mm3 (4.0-10.8)
[2017-12-02 15:11] LABS: ALBUMIN 3.4 g/dl (3.5-5.0); ALK PHOS 102 U/L (32-92); ANION GAP 8 MMOL/L (8-16); BILIRUBIN,TOTAL 0.3 mg/dl (0.2-1.0); BLOOD UREA NITROGEN 18 mg/dl (7-18); CALCIUM 8.2 mg/dl (8.4-10.2); CHLORIDE 104 mmol/L (98-107); CO2 27 mmol/L (22-28); CREATININE 1.3 mg/dl (0.6-1.3); GLUCOSE,RANDOM 127 mg/dl (74-106); POTASSIUM 3.4 mmol/L (3.5-5.1); SGOT/AST 19 U/L (10-42); SGPT/ALT 11 U/L (10-40); SODIUM 139 mmol/L (136-145)
[2017-12-02 15:16] VITALS: BP 143/78; PULSE 73
--- NOTE | 2017-12-07 11:10 | EKG ---
Test Reason : Blood Pressure : / mmHG Vent. Rate : 076 BPM Atrial Rate : 076 BPM P-R Int : 146 ms QRS Dur : 096 ms QT Int : 458 ms P-R-T Axes : 062 046 044 degrees QTc Int : 515 ms NORMAL SINUS RHYTHM NONSPECIFIC ST ABNORMALITY PROLONGED QT ABNORMAL ECG WHEN COMPARED WITH ECG OF 26-MAR-2017 17:38, NO SIGNIFICANT CHANGE WAS FOUND Confirmed by ESTEFANY FERNANDEZ MD ([id number]) on 12/07/2017 11:09:59 AM Referred By: OMAR GRAVES Confirmed By:ESTEFANY FERNANDEZ MD
== END 2017-12-02 16:31 | disposition home or self-care (01) ==
LOC: FER 13:54
PROC: 3E0337Z Introduction of Electrolytic and Water Balance Substance into Peripheral Vein, Percutaneous Approach (ICD-10-PCS; principal; 2017-12-02)
DX: R55 Syncope and collapse (principal); I48.91 Unspecified atrial fibrillation; I95.1 Orthostatic hypotension; E78.5 Hyperlipidemia, unspecified; F32.9 Major depressive disorder, single episode, unspecified; F03.90 Unspecified dementia, unspecified severity, without behavioral disturbance, psychotic disturbance, mood disturbance, and anxiety
CPT/HCPCS: 36415; 80053; 82550; 84484; 85025; 93005; 96360; 99283-25; J7030

== ENCOUNTER 2018-01-23 15:53 | Emergency (ER) | payer OTHER ==
[2018-01-23 16:02] VITALS: BMI 26.6
[2018-01-23] MEDS ORDERED: SODIUM CHLORIDE 1,000 ML IV STA (16:22)
--- NOTE | 2018-01-23 16:27 | PDOC ---
Attending Attestation - Resident Resident Name: Jos Hancock - ED Attending Attestation I have performed the following: I have examined & evaluated the patient, The case was reviewed & discussed with the resident, I agree w/resident's findings & plan, Exceptions are as noted - HPI HPI: 01/23/18 16:27 82yo F hx pAF (not on AC), orthostatic hypotension c/b frequent syncopal episodes, HL, depression, dementia presents to the emergency department from [facility] for 3 syncopal episodes. Pt's daughter at the bedside provides the history as the pt states she is asymptomatic and does not know why she is here. Per her daughter, the patient does not drink enough water and often gets dehydrated. She states the pt from time to time has syncopal episodes when standing up from a lying or seated position. She states that over the last 3 days, she has had 3 episodes where she gets lightheaded, nauseous and then collapses into the staff's arms. Daughter reports the patient has not had any falls over the last 3 days because the staff have caught her all 3 times. Unclear LOC as pt does not remember these episodes. No postictal period. Staff at [facility] called her daughter and informed her prompting them to bring her to the ED. History is limited due to pt's clinical condition. - Physicial Exam PE: 01/23/18 17:50 GENERAL: Awake, alert, oriented to name, in no acute distress HEAD: No signs of trauma EYES: PERRLA, EOMI, sclera anicteric, conjunctiva clear ENT: Nares patent, oropharynx clear without exudates. Moist mucosa NECK: Normal ROM, supple, no lymphadenopathy, JVD, or masses LUNGS: Breath sounds equal, clear to auscultation bilaterally. No wheezes, and no crackles HEART: irregularly irregular, normal S1 and S2, no murmurs, rubs or gallops ABDOMEN: Soft, nontender, normoactive bowel sounds. No guarding, no rebound. No masses EXTREMITIES: Normal range of motion, no edema. No clubbing or cyanosis. No cords, erythema, or tenderness NEUROLOGICAL: Normal speech, cranial nerves intact, negative pronator drift, 5/ 5 strength in all 4 extremities, normal sensation to light touch in all 4 extremities, normal cerebellar exam, normal tone SKIN: Warm, Dry, normal turgor, no rashes or lesions noted. - Medical Decision Making 01/23/18 17:55 82yo F hx orthostatic hypotension c/b syncope presents to the ED with 2 episodes of LOC when standing up from a seated position over the last 3 days. No falls, no injuries. Orthostatics markedly positive on arrival. Lying BP 153/ 78 and HR 73 -> standing 103/69 and 94. Plan to check labs, EKG, hydrate pt and reassess vitals. 01/23/18 18:59 Labs thus far wnl Rpt orthostatics after 1L: supine BP 177/80, HR 71 -> standing BP 122/78, HR 86 Will given another liter of fluids and reassess CT reads pending, CXR pending UA so far with 2+ LE, micro pending Case signed out to oncoming attending for further mgmt/dispo <Timbo Deealonzo - Last Filed: 01/23/18 18:37> - Medical Decision Making EXAM: CT Cervical spine wo: IMAGES: 246 EXAM DATE AND TIME: 2018-01-23 16:25:52 REASON FOR EXAM: Neck pain. IMPRESSION: Chronic intervertebral osteochondrosis is noted at the C4-5, C5-6 and C6-7 levels, as described above. Small posterior disc osteophyte complexes are noted at C5-6 and C6-7. The study is otherwise unremarkable. No fracture. The spinal canal and neural foramina are patent at all levels without evidence of spinal cord compression or nerve root compromise. One or more of the following dose reduction techniques were used: automated exposure control, adjustment of the mA and/or kV according to patient size, use of iterative reconstructive technique. THIS DOCUMENT HAS BEEN ELECTRONICALLY SIGNED Stephan Nicole MD. 01/23/2018 18:01 EST EXAM: CT Head wo IMAGES: 80 EXAM DATE AND TIME: 2018-01-23 16:29:34 HISTORY: 82 year old woman: Head trauma following a fall. IMPRESSION: Multiple, scattered, deep cerebral white matter chronic microvascular ischemic changes. Moderate age related involutional changes. The study is otherwise unremarkable. No calvarial, facial or skull base fractures imaged on the current exam. No intracranial hemorrhages or brain parenchymal contusion injuries. THIS DOCUMENT HAS BEEN ELECTRONICALLY SIGNED Stephan Nicole MD. 01/23/2018 17:50 EST <Ebony Reyez - Last Filed: 01/23/18 18:50>
--- NOTE | 2018-01-23 16:39 | PDOC ---
History of Present Illness - General Chief Complaint: Syncope/Near Syncope Stated Complaint: SYNCOPE, VOMITING Time Seen by Provider: 01/23/18 16:07 - History of Present Illness Initial Comments: 01/23/18 16:39 The patient is a 82 year old female, with a significant past medical history of paroxysmal afib (no AC), orthostatic hypotension (adrenal insufficiency), hyperlipidemia, depression, senile dementia, falls, syncopal episodes, who presents to the emergency department from [facility] via EMS s/p syncope for the past 2 days and post-prandial vomiting. According to family, patient is often very dehydrated because of poor fluid intake. She usually looses consciousness whenever she gets up too fast and was diagnosed with orthostatic hypotension. Patient also vomited after eating twice. Those symptoms are not new and presented to the ED many times with them. Patient never hit her head or the floor, always collapsed in the arms of a tube depatcher. Past History - Past Medical History Allergies/Adverse Reactions: Allergies Allergy/AdvReac Type Severity Reaction Status Date / Time digoxin Allergy Verified 01/23/18 15:54 Home Medications: Ambulatory Orders Atorvastatin Ca [Lipitor] 40 mg PO DAILY 07/18/16 Cholecalciferol (Vitamin D3) [Vitamin D3] 2,000 unit PO DAILY 07/18/16 Citalopram Hydrobromide [Citalopram HBr] 20 mg PO DAILY 07/18/16 Fludrocortisone Acetate [Florinef -] 0.1 mg PO BID 07/18/16 Aspirin [ASA -] 81 mg PO DAILY 08/19/16 Bupropion HCl [Bupropion HCl Sr] 150 mg PO DAILY 09/21/16 Midodrine HCl [Proamatine -] 2.5 mg PO BID 03/26/17 Acetaminophen [Tylenol Extra Strength] 500 mg PO PRN PRN 12/02/17 Dronedarone HCl [Multaq] 400 mg PO BID 12/02/17 Tamoxifen Citrate 20 mg PO DAILY 12/02/17 Sulfamethoxazole/Trimethoprim [Bactrim Ds Tablet] 1 each PO BID #6 tablet Cancer: Yes (left breast) Cardiac Disorders: Yes (HYPOTENSION, AFIB) COPD: No Dementia: Yes (SENILE DEGENERATION) Hypercholesterolemia: Yes Psychiatric Problems: Yes (DEPRESSION) Other medical history: ORTHOSTATIC HYPOTENSION, SYNCOPE/FAINTING - Suicide/Smoking/Psychosocial Hx Smoking History: Never smoked Have you smoked in the past 12 months: No Information on smoking cessation initiated: No Hx Alcohol Use: No Drug/Substance Use Hx: No Substance Use Type: None Hx Substance Use Treatment: No Review of Systems - Review of Systems Able to Perform ROS?: Yes Is the patient limited French proficient: No Constitutional: No: Symptoms Reported HEENTM: No: Symptoms Reported Respiratory: No: Symptoms reported Cardiac (ROS): No: Symptoms Reported ABD/GI: No: Symptoms Reported : No: Symptoms Reported Musculoskeletal: No: Symptoms Reported Integumentary: No: Symptoms Reported Neurological: No: Symptoms reported All Other Systems: Reviewed and Negative *Physical Exam - Vital Signs Last Vital Signs Temp Pulse Resp BP Pulse Ox 97.7 F 94 H 18 103/69 99 01/23/18 15:53 01/23/18 16:05 01/23/18 16:05 01/23/18 16:05 01/23/18 16:05 - Physical Exam General Appearance: Yes: Nourished, Appropriately Dressed. No: Apparent Distress HEENT: positive: EOMI, GURPREET, Normal ENT Inspection Respiratory/Chest: positive: Lungs Clear, Normal Breath Sounds. negative: Chest Tender, Respiratory Distress Vascular Pulses: Dorsalis-Pedis (R): 1+, Doralis-Pedis (L): 1+ Gastrointestinal/Abdominal: positive: Normal Bowel Sounds, Flat, Soft. negative : Tender Musculoskeletal: positive: Normal Inspection. negative: CVA Tenderness Extremity: positive: Normal Inspection, Normal Range of Motion, Delayed Capillary Refill Integumentary: positive: Normal Color, Dry, Warm, Other (skin tenting) Neurologic: positive: Alert, Normal Mood/Affect, Normal Response. negative: Fully Oriented ED Treatment Course - LABORATORY CBC & Chemistry Diagram: 01/23/18 16:35 01/23/18 16:35 - ADDITIONAL ORDERS Additional order review: Laboratory Results 01/23/18 01/23/18 01/23/18 18:15 16:35 16:35 Sodium 137 Potassium 3.6 Chloride 101 Carbon Dioxide 27 Anion Gap 9 BUN 18 Creatinine 1.4 H Creat Clearance w eGFR 36.18 Random Glucose 106 Calcium 8.6 Total Bilirubin 0.2 AST 18 ALT 12 Alkaline Phosphatase 112 H Troponin I < 0.03 Total Protein 6.4 Albumin 3.6 Urine Color Yellow Urine Appearance Slightly Urine pH 7.0 Ur Specific [place] 1.020 Urine Protein Trace Urine Glucose (UA) Negative Urine Ketones Trace Urine Blood Trace-intact H Urine Nitrite Negative Urine Bilirubin Negative Urine Urobilinogen 1.0 Ur Leukocyte Esterase 2+ H Urine RBC 5-10 Urine WBC 10-20 Ur Epithelial Cells 1+ Amorphous Urates 1+ Urine Bacteria 1+ 01/23/18 16:35 RBC 3.72 MCV 90.1 MCHC 33.4 RDW 14.8 MPV 7.5 Neutrophils % 76.2 Lymphocytes % 13.2 Monocytes % 7.5 Eosinophils % 2.4 Basophils % 0.7 - RADIOLOGY Radiology Studies Ordered: Category Date Time Status HEAD CT WITHOUT CONTRAST [CT] Stat CT Scan 01/23/18 16:15 Taken - Medications Given in the ED: ED Medications Discontinued Medications Generic Name Dose Route Start Last Admin Trade Name Freq PRN Reason Stop Dose Admin Sodium Chloride 1,000 mls @ 1,000 mls/hr 01/23/18 16:22 01/23/18 16:55 Normal Saline - IV 01/23/18 17:21 1,000 mls/hr ASDIR STA Administration Medical Decision Making - Medical Decision Making 01/23/18 16:55 The patient is a 82 year old female, with a significant past medical history of paroxysmal afib (no AC), orthostatic hypotension (adrenal insufficiency), hyperlipidemia, depression, senile dementia, falls, syncopal episodes, who presents to the emergency department from [facility] via EMS s/p syncope. 01/23/18 16:56 Positive orthostatics. Will gently rehydrate. *DC/Admit/Observation/Transfer Diagnosis at time of Disposition: Orthostatic hypotension, Dehydration, UTI (urinary tract infection) - Discharge Dispostion Disposition: HOME Condition at time of disposition: Stable Decision to Admit order: No - Prescriptions Prescriptions: Sulfamethoxazole/Trimethoprim [Bactrim Ds Tablet] 1 each PO BID #6 tablet - Referrals Referrals: Ted Vides MD [Primary Care Provider] - - Patient Instructions Printed Discharge Instructions: DI for Syncope in Adults (Fainting) Additional Instructions: Follow up with your primary care provider. A culture was done of your urine as there might possibly be some signs of mild infection. However we chose not to give you antibiotics in the meantimeas the potential benefits might not be worth the potential side-effects. You will be notified of any positive results. Come back to the Emergency department for any new, worsening or concerning symptoms. - Post Discharge Activity Forms/Work/School Notes: Back to Work
[2018-01-23 17:07] LABS: BASO % 0.7 % (0-2.0); EOS % 2.4 % (0-4.5); HEMATOCRIT 33.5 % (32.4-45.2); HEMOGLOBIN 11.2 GM/dl (10.7-15.3); LYMPH % 13.2 % (8-40); MCH 30.1 pg (25.7-33.7); MCHC 33.4 g/dl (32.0-36.0); MEAN CELL VOLUME 90.1 fl (80-96); MEAN PLT VOLUME 7.5 fl (7.5-11.1); MONO % 7.5 % (3.8-10.2); NEUT % 76.2 % (42.8-82.8); PLATELET COUNT 242 K/MM3 (134-434); RBC 3.72 M/mm3 (3.60-5.2); RDW 14.8 % (11.6-15.6); WHITE BLOOD COUNT 7.4 K/mm3 (4.0-10.8)
[2018-01-23 17:16] LABS: ALBUMIN 3.6 g/dl (3.5-5.0); ALK PHOS 112 U/L (32-92); ANION GAP 9 MMOL/L (8-16); BILIRUBIN,TOTAL 0.2 mg/dl (0.2-1.0); BLOOD UREA NITROGEN 18 mg/dl (7-18); CALCIUM 8.6 mg/dl (8.4-10.2); CHLORIDE 101 mmol/L (98-107); CO2 27 mmol/L (22-28); CREATININE 1.4 mg/dl (0.6-1.3); GLUCOSE,RANDOM 106 mg/dl (74-106); POTASSIUM 3.6 mmol/L (3.5-5.1); SGOT/AST 18 U/L (10-42); SGPT/ALT 12 U/L (10-40); SODIUM 137 mmol/L (136-145); TOT PROT 6.4 g/dl (6.4-8.3)
[2018-01-23 18:22] LABS: URINE APPEARANCE Slightly; URINE BILIRUBIN Negative (NEGATIVE); URINE COLOR Yellow; URINE GLUCOSE (UA) Negative (NEGATIVE); URINE KETONE Trace (NEGATIVE); URINE LEUK ESTERASE 2+ (NEGATIVE); URINE NITRITE Negative (NEGATIVE); URINE PROTEIN Trace (NEGATIVE)
[2018-01-23 18:42] LABS: AMORP URATES 1+ /hpf (NONE SEEN); EPI CELLS 1+ /HPF; URINE BACTERIA 1+ /hpf (NEGATIVE)
[2018-01-23] MEDS ORDERED: SULFAMETHOXAZOLE/TRIMETHOPRIM 800MG/160MG D.S. TABLET PO ONE (19:00)
[2018-01-23] MEDS ORDERED: SULFAMETHOXAZOLE/TRIMETHOPRIM 800MG/160MG D.S. TABLET ONE (19:04)
--- NOTE | 2018-01-23 20:09 | PDOC ---
*Physical Exam - Vital Signs Last Vital Signs Temp Pulse Resp BP Pulse Ox 97.7 F 86 18 122/78 97 01/23/18 15:53 01/23/18 18:55 01/23/18 18:55 01/23/18 18:55 01/23/18 18:55 ED Treatment Course - LABORATORY CBC & Chemistry Diagram: 01/23/18 16:35 01/23/18 16:35 - ADDITIONAL ORDERS Additional order review: Laboratory Results 01/23/18 01/23/18 01/23/18 18:15 16:35 16:35 Sodium 137 Potassium 3.6 Chloride 101 Carbon Dioxide 27 Anion Gap 9 BUN 18 Creatinine 1.4 H Creat Clearance w eGFR 36.18 Random Glucose 106 Calcium 8.6 Total Bilirubin 0.2 AST 18 ALT 12 Alkaline Phosphatase 112 H Troponin I < 0.03 Total Protein 6.4 Albumin 3.6 Urine Color Yellow Urine Appearance Slightly Urine pH 7.0 Ur Specific [place] 1.020 Urine Protein Trace Urine Glucose (UA) Negative Urine Ketones Trace Urine Blood Trace-intact H Urine Nitrite Negative Urine Bilirubin Negative Urine Urobilinogen 1.0 Ur Leukocyte Esterase 2+ H Urine RBC 5-10 Urine WBC 10-20 Ur Epithelial Cells 1+ Amorphous Urates 1+ Urine Bacteria 1+ 01/23/18 16:35 RBC 3.72 MCV 90.1 MCHC 33.4 RDW 14.8 MPV 7.5 Neutrophils % 76.2 Lymphocytes % 13.2 Monocytes % 7.5 Eosinophils % 2.4 Basophils % 0.7 - Medications Given in the ED: ED Medications Discontinued Medications Generic Name Dose Route Start Last Admin Trade Name Freq PRN Reason Stop Dose Admin Sodium Chloride 1,000 mls @ 1,000 mls/hr 01/23/18 16:22 01/23/18 16:55 Normal Saline - IV 01/23/18 17:21 1,000 mls/hr ASDIR STA Administration Trimethoprim/Sulfamethoxazole 1 each 01/23/18 19:00 01/23/18 19:16 Bactrim Ds - PO 01/23/18 19:01 Not Given ONCE ONE Progress Note - Progress Note Progress Note: This patient was transferred to tx from at 1900 hrs. Patient is a 82- year-old female who has history of syncope in the past secondary to orthostatic hypotension. Patient has had workups in the past for her syncope. Patient comes in post having some vomiting and supervised most likely secondary to some dehydration in addition to her orthostatic hypotension. Patient was with staff at the time he did not fall or hit her head. However a CAT scan was done that was negative. Otherwise patient was quite orthostatic here in the emergency room. Patient given fluids and orthostatics improved but still some orthostatic hypotension. Patient on second liter of fluid after which she will be reevaluated and if her blood pressure is stable she well he discharged back to her long term. Patient also had a urine was sent that did show some white cells and red cells in it however and it did also appear to be somewhat contaminated. A culture was sent and patient will not be treated for a urinary tract infection until we have the results of the culture with a colony count I will notify the long term that they need to follow up on the culture result and that she will need to be treated if the culture is positive. *DC/Admit/Observation/Transfer Diagnosis at time of Disposition: Orthostatic hypotension, Dehydration - Discharge Dispostion Disposition: HOME Condition at time of disposition: Stable - Referrals Referrals: Ted Vides MD [Primary Care Provider] - - Patient Instructions Printed Discharge Instructions: DI for Syncope in Adults (Fainting) Additional Instructions: Follow up with your primary care provider. A culture was done of your urine as there might possibly be some signs of mild infection. However we chose not to give you antibiotics in the meantimeas the potential benefits might not be worth the potential side-effects. You will be notified of any positive results. Come back to the Emergency department for any new, worsening or concerning symptoms. - Post Discharge Activity Forms/Work/School Notes: Back to Work
[2018-01-23 20:38] VITALS: BP 159/87; PULSE 91; TEMP 98.1
--- NOTE | 2018-01-24 13:46 | EKG ---
Test Reason : Blood Pressure : / mmHG Vent. Rate : 071 BPM Atrial Rate : 071 BPM P-R Int : 156 ms QRS Dur : 090 ms QT Int : 480 ms P-R-T Axes : 074 040 053 degrees QTc Int : 521 ms NORMAL SINUS RHYTHM NONSPECIFIC ST ABNORMALITY PROLONGED QT ABNORMAL ECG WHEN COMPARED WITH ECG OF 02-DEC-2017 14:05, NO SIGNIFICANT CHANGE WAS FOUND Confirmed by RAJ GAMA MD ([id number]) on 01/24/2018 1:45:59 PM Referred By: ALINA Confirmed By:RAJ GAMA MD
== END 2018-01-23 20:58 | disposition home or self-care (01) ==
LOC: FER 15:53
PROC: 3E0337Z Introduction of Electrolytic and Water Balance Substance into Peripheral Vein, Percutaneous Approach (ICD-10-PCS; principal; 2018-01-23)
DX: E86.0 Dehydration (principal); I95.1 Orthostatic hypotension; N39.0 Urinary tract infection, site not specified; I48.0 Paroxysmal atrial fibrillation; E78.5 Hyperlipidemia, unspecified; F41.9 Anxiety disorder, unspecified; Z91.81 History of falling; F03.90 Unspecified dementia, unspecified severity, without behavioral disturbance, psychotic disturbance, mood disturbance, and anxiety
CPT/HCPCS: 36415; 70450-TC; 71045-TC-FY; 72125-TC; 80053; 81003; 81015; 84484; 85025; 87086; 93005; 99285-25; J7030

== ENCOUNTER 2019-02-16 08:37 | Day surgery (SDC) | payer OTHER, BC ==
[2019-02-15 15:36] VITALS: BMI 23.6
[2019-02-16] MEDS: PHENYLEPHRINE 2.5% OPHTH SOLN 15 ML BOTTLE ONE ×3 (09:20→09:30)
[2019-02-16] MEDS: CIPROFLOXACIN 0.3% EYE DROPS 5 ML BOTTLE ONE ×3 (09:20→09:30)
[2019-02-16] MEDS: TROPICAMIDE 1% OPHTH SOLN 15 ML BOTTLE ONE ×3 (09:20→09:30)
[2019-02-16] MEDS: CYCLOPENTOLATE 2% OPHTH SOLN 2 ML BOTTLE ONE ×3 (09:20→09:30)
[2019-02-16] MEDS ORDERED: CARBACHOL 0.01% INTRA-OCULAR 1.5 ML VIAL ONE (10:47)
[2019-02-16] MEDS ORDERED: NEO/POLYMYX B SULF/DEXAMETH OPHTHALMIC 5ML BOTTLE ONE (10:47)
[2019-02-16] MEDS ORDERED: TETRACAINE 0.5% OPHTH SOLN 2 ML BOTTLE ONE (10:47)
[2019-02-16] MEDS ORDERED: LIDOCAINE 1% P/F 10 MG/ML VIAL ONE (10:47)
[2019-02-16] MEDS ORDERED: BSS (NA/CA/MG/K) BALANCED SALT SOLUTION OPHTH SOLN 15 ML BOTTLE ONE (10:47)
[2019-02-16] MEDS ORDERED: MIDAZOLAM HCL 2 MG/2 ML SINGLE DOSE VIAL ONE (11:05)
[2019-02-16 11:42] VITALS: TEMP 97.9
--- NOTE | 2019-02-16 12:19 | OP ---
DATE OF OPERATION: 02/16/2019 OPERATIVE PROCEDURE: Lens Phacoemulsification with Posterior Chamber Intraocular Lens Placement Left Eye. PREOPERATIVE DIAGNOSIS: Visually Significant Cataract of Left Eye. POSTOPERATIVE DIAGNOSIS: Visually Significant Cataract of Left Eye. SURGEON: Gus Ludwig MD ANESTHESIA: MAC ANESTHESIOLOGIST: PROCEDURE: The patient was brought to the operating room and placed under monitored anesthesia care by Anesthesia. A drop of Tetracaine was then placed over the left eye. The patient was then prepped and draped in the usual sterile manner. A speculum was then placed over the left eye. The eye was then well irrigated with copious amounts of BSS (balanced salt solution). The operating microscope was then moved into position. A paracentesis was performed using a 15 degree blade. At this point 0.5 mL of 1% preservative-free lidocaine was injected into the anterior chamber. Amvisc plus was then injected into the anterior chamber. A clear corneal incision was then formed using a 2.2 mm keratome. A capsulorrhexis was then performed in a continuous circular fashion beginning with a cystotome, completed with an Utratas forceps. Hydrodissection was then performed using BSS on a cannula. The phaco probe was then introduced through the corneal wound and the cataract was removed using the phaco chop technique. Approximately 3 seconds of absolute phaco time was used. The remaining cortex was then removed using irrigation and aspiration with an I/A probe. The capsule was then filled with regular Amvisc and the capsule was noted to be intact. A previously selected foldable posterior chamber intraocular lens was then injected into the capsule through the corneal wound using a lens injector. It was then dialed into position using a Sinskey hook. The Amvisc was then removed using irrigation and aspiration. Miostat was then injected through the paracentesis to constrict the pupil. The paracentesis and corneal wound were then hydrated and noted to be watertight. A drop of Maxitrol was then placed over the eye. The speculum was removed and clear shield was taped over the eye. The patient tolerated the procedure well and there were no surgical complications. The patient was asked to follow up in my office the next day. GUS LUDWIG M.D. [id number]
[2019-02-16 13:16] VITALS: BP 157/84; PULSE 80
== END 2019-02-16 12:15 | disposition home or self-care (01) ==
LOC: FASU 08:37
PROVIDERS: ATTEND Ophthalmology
PROC: 08RK3JZ Replacement of Left Lens with Synthetic Substitute, Percutaneous Approach (ICD-10-PCS; principal; 2019-02-16 11:10)
DX: H26.8 Other specified cataract (principal)